=== PATIENT | female | born 1995 | race Caucasian/White ===

== ENCOUNTER 2020-05-07 07:54 | Emergency (ER) | payer OTHER ==
[2020-05-07] MEDS ORDERED: ONDANSETRON 4 MG/2 ML VIAL IVP STA (08:04)
[2020-05-07] MEDS ORDERED: SODIUM CHLORIDE 0.9% 1,000 ML IV STA ×2 (08:04)
[2020-05-07 08:07] VITALS: RESP 18
[2020-05-07 08:32] LABS: Basophils % (A) 0 %; Eosinophils # (A) 0.2 k/uL (0-0.7); Eosinophils % (A) 2 %; Lymphocytes # (A) 0.8 k/uL (1.0-4.8); Lymphocytes % (A) 10 %; MCH 31.4 pg (25.0-35.0); MCHC 34.2 g/dL (31.0-37.0); Mean Platelet Volume 8.4; Monocytes # (A) 0.4 k/uL (0-1.0); Monocytes % (A) 5 %; Neutrophils # (A) 6.7 k/uL (1.3-7.7); Neutrophils % (A) 81 %; Platelet Count 184 k/uL (150-450); RBC 4.13 m/uL (3.80-5.40); RDW 12.2 % (11.5-15.5); WBC 8.3 k/uL (3.8-10.6)
[2020-05-07 08:34] LABS: Appearance,Urine Clear (Clear); Bilirubin,Urine Negative (Negative); Blood,Urine Trace (Negative); Color,Urine Yellow; Glucose,Urine (UA) Negative (Negative); Ketones,Urine 4+ (Negative); Leukocyte Esterase,Urine Negative (Negative); Mucus,Urine Rare /hpf; Nitrite,Urine Negative (Negative); PH, Urine 5.5 (5.0-8.0); Protein,Urine Trace (Negative); RBC,Urine <1 /hpf (0-5); Specific Gravity,Urine 1.025 (1.001-1.035); Squamous Epithelial Cell,Urine 1 /hpf (0-4); Urobilinogen,Urine <2.0 mg/dL (<2.0); WBC,Urine 1 /hpf (0-5)
[2020-05-07 08:47] LABS: ALT 14 U/L (4-34); African American GFR (CKD) >90 (>60 ml/min/1.73 sqM); Albumin 4.6 g/dL (3.5-5.0); Amylase 54 U/L (30-110); Anion Gap 12 mmol/L; Blood Urea Nitrogen 27 mg/dL (7-17); Calcium 8.8 mg/dL (8.4-10.2); Carbon Dioxide 19 mmol/L (22-30); Chloride 106 mmol/L (98-107); Glucose 90 mg/dL (74-99); Lipase 58 U/L (23-300); Non-African American GFR(CKD) >90 (>60 ml/min/1.73 sqM); Sodium 137 mmol/L (137-145); Total Bilirubin 0.9 mg/dL (0.2-1.3); Total Protein 7.8 g/dL (6.3-8.2)
[2020-05-07 08:51] LABS: AST 29 U/L (14-36); Alkaline Phosphatase 41 U/L (38-126)
--- NOTE | 2020-05-07 08:51 | ED ---
Nausea/Vomiting/Diarrhea HPI - General Chief complaint: Nausea/Vomiting/Diarrhea Stated complaint: nausea Time Seen by Provider: 05/07/20 07:57 Source: patient, EMS Mode of arrival: EMS Limitations: no limitations - History of Present Illness Initial comments: 25yo female presenting for cc of nausea, vomiting, possible reaction to influenza vaccine. pt states that a few days ago she was given the influenza vaccine. she states that she has "felt like shit since". she states that she had had chills, body aches and nausesa, she states she had an episode of vomiting today and soem mild abdominal pain. patient denies bloody or black stools, denies blood in vomit, cough or recording a fever at home. patient denies , urinary symptoms. pt has no additional complaints. pt states she thinks it could all be related to anxiety - Related Data Previous Rx's Medication Instructions Recorded Ondansetron Odt [Zofran Odt] 4 mg PO Q8HR PRN 7 Days #21 tab 05/07/20 Allergies Allergy/AdvReac Type Severity Reaction Status Date / Time bee venom protein (honey bee) Allergy Severe Anaphylaxis Verified 05/07/20 08:53 chocolate flavor Allergy Severe Rash/Hives Verified 05/07/20 08:53 Beef Containing Products AdvReac Mild Unknown Verified 05/07/20 08:53 [Beef] Childhood Review of Systems ROS Statement: Those systems with pertinent positive or pertinent negative responses have been documented in the HPI. ROS Other: All systems not noted in ROS Statement are negative. Past Medical History Past Medical History: No Reported History History of Any Multi-Drug Resistant Organisms: None Reported Past Surgical History: No Surgical Hx Reported Past Psychological History: Anxiety Smoking Status: Current some day smoker Past Alcohol Use History: None Reported Past Drug Use History: Marijuana General Exam - General Exam Comments Initial Comments: General: The patient is awake and alert, in no distress, Eye: Pupils are equal, round and reactive to light, extra-ocular movements are intact. No nystagmus. There is normal conjunctiva bilaterally. No signs of icterus. Ears, nose, mouth and throat: There are moist mucous membranes and no oral lesions. Neck: The neck is supple, there is no tenderness or JVD. Cardiovascular: There is a regular rate and rhythm. No murmur, rub or gallop is appreciated. Respiratory: Lungs are clear to auscultation, respirations are non-labored, breath sounds are equal. No wheezes, stridor, rales, or rhonchi. Gastrointestinal: Soft, non-distended, non-tender abdomen without masses or organomegaly noted. There is no rebound or guarding present Musculoskeletal: Normal ROM, no tenderness. Strength 5/5. Sensation intact. Radial pulses equal bilaterally 2+. Neurological: A&O x 3. CN II-XII intact grossly, There are no obvious motor or sensory deficits. Coordination appears grossly intact. Speech is normal. Skin: Skin is warm and dry and no rashes or lesions are noted. Psychiatric: Cooperative, appropriate mood & affect, normal judgment. Limitations: no limitations Course Vital Signs 05/07/20 05/07/20 05/07/20 08:01 09:07 09:20 Temperature 97.5 F L 97.5 F L Pulse Rate 74 75 75 Respiratory 18 18 18 Rate Blood Pressure 120/82 116/77 116/77 O2 Sat by Pulse 99 100 100 Oximetry Medical Decision Making - Medical Decision Making Labs stable. UA ketones, pt states decreased oral intake. glucose WNL. Anion gap 12. patietn hydrated. improvement of symptoms with zofran. abdominal exam unremarkable. pt states this happens with the influenza vaccine. pt will be discharged with zofran and pcp f/u. patient agreeable to this care plan and discharge. - Lab Data Result diagrams: 05/07/20 08:24 05/07/20 08:24 Lab Results 05/07/20 05/07/20 05/07/20 Range/Units 08:24 08:24 08:24 WBC 8.3 (3.8-10.6) k/uL RBC 4.13 (3.80-5.40) m/uL Hgb 13.0 (11.4-16.0) gm/dL Hct 38.0 (34.0-46.0) % MCV 92.0 (80.0-100.0) fL MCH 31.4 (25.0-35.0) pg MCHC 34.2 (31.0-37.0) g/dL RDW 12.2 (11.5-15.5) % Plt Count 184 (150-450) k/uL MPV 8.4 Neutrophils % 81 % Lymphocytes % 10 % Monocytes % 5 % Eosinophils % 2 % Basophils % 0 % Neutrophils # 6.7 (1.3-7.7) k/uL Lymphocytes # 0.8 L (1.0-4.8) k/uL Monocytes # 0.4 (0-1.0) k/uL Eosinophils # 0.2 (0-0.7) k/uL Basophils # 0.0 (0-0.2) k/uL Sodium (137-145) mmol/L Potassium (3.5-5.1) mmol/L Chloride (98-107) mmol/L Carbon Dioxide (22-30) mmol/L Anion Gap mmol/L BUN (7-17) mg/dL Creatinine (0.52-1.04) mg/dL Est GFR (CKD-EPI)AfAm (>60 ml/min/1.73 sqM) Est GFR (CKD-EPI)NonAf (>60 ml/min/1.73 sqM) Glucose (74-99) mg/dL Calcium (8.4-10.2) mg/dL Total Bilirubin (0.2-1.3) mg/dL AST (14-36) U/L ALT (4-34) U/L Alkaline Phosphatase (38-126) U/L Total Protein (6.3-8.2) g/dL Albumin (3.5-5.0) g/dL Amylase (30-110) U/L Lipase (23-300) U/L Urine Color Yellow Urine Appearance Clear (Clear) Urine pH 5.5 (5.0-8.0) Ur Specific [place] 1.025 (1.001-1.035) Urine Protein Trace H (Negative) Urine Glucose (UA) Negative (Negative) Urine Ketones 4+ H (Negative) Urine Blood Trace H (Negative) Urine Nitrite Negative (Negative) Urine Bilirubin Negative (Negative) Urine Urobilinogen <2.0 (<2.0) mg/dL Ur Leukocyte Esterase Negative (Negative) Urine RBC <1 (0-5) /hpf Urine WBC 1 (0-5) /hpf Ur Squamous Epith Cells 1 (0-4) /hpf Urine Mucus Rare H (None) /hpf Urine HCG, Qual Not Detected (Not Detectd) 05/07/20 Range/Units 08:24 WBC (3.8-10.6) k/uL RBC (3.80-5.40) m/uL Hgb (11.4-16.0) gm/dL Hct (34.0-46.0) % MCV (80.0-100.0) fL MCH (25.0-35.0) pg MCHC (31.0-37.0) g/dL RDW (11.5-15.5) % Plt Count (150-450) k/uL MPV Neutrophils % % Lymphocytes % % Monocytes % % Eosinophils % % Basophils % % Neutrophils # (1.3-7.7) k/uL Lymphocytes # (1.0-4.8) k/uL Monocytes # (0-1.0) k/uL Eosinophils # (0-0.7) k/uL Basophils # (0-0.2) k/uL Sodium 137 (137-145) mmol/L Potassium 4.0 (3.5-5.1) mmol/L Chloride 106 (98-107) mmol/L Carbon Dioxide 19 L (22-30) mmol/L Anion Gap 12 mmol/L BUN 27 H (7-17) mg/dL Creatinine 0.71 (0.52-1.04) mg/dL Est GFR (CKD-EPI)AfAm >90 (>60 ml/min/1.73 sqM) Est GFR (CKD-EPI)NonAf >90 (>60 ml/min/1.73 sqM) Glucose 90 (74-99) mg/dL Calcium 8.8 (8.4-10.2) mg/dL Total Bilirubin 0.9 (0.2-1.3) mg/dL AST 29 (14-36) U/L ALT 14 (4-34) U/L Alkaline Phosphatase 41 (38-126) U/L Total Protein 7.8 (6.3-8.2) g/dL Albumin 4.6 (3.5-5.0) g/dL Amylase 54 (30-110) U/L Lipase 58 (23-300) U/L Urine Color Urine Appearance (Clear) Urine pH (5.0-8.0) Ur Specific [place] (1.001-1.035) Urine Protein (Negative) Urine Glucose (UA) (Negative) Urine Ketones (Negative) Urine Blood (Negative) Urine Nitrite (Negative) Urine Bilirubin (Negative) Urine Urobilinogen (<2.0) mg/dL Ur Leukocyte Esterase (Negative) Urine RBC (0-5) /hpf Urine WBC (0-5) /hpf Ur Squamous Epith Cells (0-4) /hpf Urine Mucus (None) /hpf Urine HCG, Qual (Not Detectd) Disposition Clinical Impression: Nausea & vomiting, Urine ketones Disposition: HOME SELF-CARE Condition: Good Instructions (If sedation given, give patient instructions): Acute Nausea and Vomiting (ED) Additional Instructions: Please use medication as discussed. Please follow-up with family doctor in the next 2 days. Please return to emergency room if the symptoms increase or worsen or for any other concerns. Prescriptions: Ondansetron Odt [Zofran Odt] 4 mg PO Q8HR PRN 7 Days #21 tab PRN Reason: Nausea Is patient prescribed a controlled substance at d/c from ED?: No Referrals: None,Stated [Primary Care Provider] - 1-2 days [facility] [NON-STAFF] - 1-2 days Time of Disposition: 08:54
[2020-05-07] MEDS ORDERED: ALPRAZolam 0.5 MG TAB PO STA (08:54)
[2020-05-07 09:21] VITALS: BP 116/77; PULSE 75; TEMP 97.5
== END 2020-05-07 09:25 | disposition home or self-care (01) ==
LOC: EC 07:54
DX: R11.2 Nausea with vomiting, unspecified (principal); R10.9 Unspecified abdominal pain; R82.4 Acetonuria; F17.200 Nicotine dependence, unspecified, uncomplicated; Z91.030 Bee allergy status; Z91.018 Allergy to other foods
CPT/HCPCS: 36415; 80053; 81001; 81025; 82150; 83690; 85025; 96360; 99283

== ENCOUNTER 2021-04-05 14:02 | Emergency (ER) | payer OTHER ==
[2021-04-05 14:40] VITALS: RESP 18
--- NOTE | 2021-04-05 15:42 | XR ---
EXAMINATION TYPE: XR chest 2V DATE OF EXAM: 04/05/2021 COMPARISON: NONE HISTORY: Cough and congestion. TECHNIQUE: Frontal and lateral views of the chest are obtained. FINDINGS: There is no focal air space opacity, pleural effusion, or pneumothorax seen. The cardiac silhouette size is within normal limits. The osseous structures are intact. IMPRESSION: No acute pulmonary process.
[2021-04-05 15:44] VITALS: BP 117/71; PULSE 89; TEMP 97.6
--- NOTE | 2021-04-05 16:01 | ED ---
URI HPI - General Chief Complaint: Upper Respiratory Infection Stated Complaint: SOB,Cough,Fever-wants covid screening Time Seen by Provider: 04/05/21 14:42 Source: patient, RN notes reviewed Mode of arrival: ambulatory Limitations: no limitations - History of Present Illness Initial Comments: Patient is a 26-year-old female that presents to the emergency department complaining of upper respiratory tract symptoms also she has a history of chronic bronchitis. She notes he came emergently get tested for Covid. She was otherwise well-appearing. She notes she is feels like garbage she usually gets this around this time year. She denied any chest pain headache nausea vomiting diarrhea constipation teaching chills. - Related Data Previous Rx's Medication Instructions Recorded Ondansetron Odt [Zofran Odt] 4 mg PO Q8HR PRN 7 Days #21 tab 05/07/20 Allergies Allergy/AdvReac Type Severity Reaction Status Date / Time bee venom protein (honey bee) Allergy Severe Anaphylaxis Verified 05/07/20 08:53 chocolate flavor Allergy Severe Rash/Hives Verified 05/07/20 08:53 Beef Containing Products AdvReac Mild Unknown Verified 05/07/20 08:53 [Beef] Childhood Review of Systems ROS Statement: Those systems with pertinent positive or pertinent negative responses have been documented in the HPI. ROS Other: All systems not noted in ROS Statement are negative. Past Medical History Past Medical History: No Reported History History of Any Multi-Drug Resistant Organisms: None Reported Past Surgical History: No Surgical Hx Reported Past Psychological History: Anxiety Smoking Status: Current some day smoker Past Alcohol Use History: None Reported Past Drug Use History: Marijuana General Exam Limitations: no limitations General appearance: alert, in no apparent distress Head exam: Present: atraumatic, normocephalic, normal inspection Eye exam: Present: normal appearance, PERRL, EOMI. Absent: scleral icterus, conjunctival injection, periorbital swelling ENT exam: Present: normal exam, mucous membranes moist Neck exam: Present: normal inspection Respiratory exam: Present: normal lung sounds bilaterally. Absent: respiratory distress, wheezes, rales, rhonchi, stridor Cardiovascular Exam: Present: regular rate, normal rhythm, normal heart sounds. Absent: systolic murmur, diastolic murmur, rubs, gallop, clicks Extremities exam: Present: normal inspection, full ROM, normal capillary refill. Absent: tenderness, pedal edema, joint swelling, calf tenderness Neurological exam: Present: alert, oriented X3 Psychiatric exam: Present: normal affect, normal mood Skin exam: Present: warm, dry, intact, normal color. Absent: rash Course Vital Signs 04/05/21 04/05/21 14:36 15:43 Temperature 97.6 F Pulse Rate 72 89 Respiratory 18 18 Rate Blood Pressure 111/70 117/71 O2 Sat by Pulse 100 99 Oximetry Medical Decision Making - Medical Decision Making 26-year-old female with upper respiratory tract symptoms for the past several days. Covid test, chest x-ray ordered. Covid test negative. Chest x-ray shows no acute pulmonary process. On patient most likely has an upper respiratory tract infection. She is agreeable discharge home and conservative management. Case discussed with Dr. Melendez - Lab Data Lab Results 04/05/21 Range/Units 14:44 Coronavirus (PCR) Not Detected (Not Detectd) - Radiology Data Radiology results: report reviewed, image reviewed Chest x-ray: No acute pulmonary process. Disposition Clinical Impression: Upper respiratory tract infection Disposition: HOME SELF-CARE Condition: Stable Instructions (If sedation given, give patient instructions): Upper Respiratory Infection (ED) Additional Instructions: Please return to the Emergency Department if symptoms worsen or any other concerns. Is patient prescribed a controlled substance at d/c from ED?: No Referrals: None,Stated [Primary Care Provider] - 1-2 days Time of Disposition: 16:01
== END 2021-04-05 16:11 | disposition home or self-care (01) ==
LOC: EC 14:02
DX: J06.9 Acute upper respiratory infection, unspecified (principal); F17.200 Nicotine dependence, unspecified, uncomplicated; F12.90 Cannabis use, unspecified, uncomplicated; Z20.822 Contact with and (suspected) exposure to COVID-19; Z79.899 Other long term (current) drug therapy
CPT/HCPCS: 71046; 87635; 99283

== ENCOUNTER 2021-05-23 13:36 | Emergency (ER) | payer SELFPAY ==
[2021-05-23 13:40] VITALS: BP 118/81; PULSE 98; RESP 20; TEMP 97.5
[2021-05-23] MEDS ORDERED: KETOROLAC 15 MG/ML 1 ML VIAL IM STA (13:52)
--- NOTE | 2021-05-23 13:58 | ED ---
General Adult HPI - General Chief complaint: Back Pain/Injury Stated complaint: Fall Time Seen by Provider: 05/23/21 13:43 Source: patient Mode of arrival: ambulatory Limitations: no limitations - History of Present Illness Initial comments: This 26-year-old female presents to the emergency department with low back pain after sledding, hit a rock. Patient states about one hour ago she was sitting outside when her sled hit her out, causing her lower back to also hit the rock before she fell off the sled, rolling downhill. Patient denies any prior back surgeries or injuries in the past. Patient states she was able to get up and has been able to walk since. She states her pain in her back as 9/10. Patient denies any chest pain, abdominal pain, shortness of breath, change in vision, nausea, vomiting, headache, saddle anesthesia, bowel or bladder retention. - Related Data Previous Rx's Medication Instructions Recorded Ketorolac [Toradol] 10 mg PO TID #15 tab 05/23/21 Allergies Allergy/AdvReac Type Severity Reaction Status Date / Time bee venom protein (honey bee) Allergy Severe Anaphylaxis Verified 05/23/21 14:36 chocolate flavor Allergy Severe Rash/Hives Verified 05/23/21 14:36 kiwi Allergy Rash/Hives Verified 05/23/21 14:36 Review of Systems ROS Statement: Those systems with pertinent positive or pertinent negative responses have been documented in the HPI. ROS Other: All systems not noted in ROS Statement are negative. Past Medical History Past Medical History: Asthma History of Any Multi-Drug Resistant Organisms: None Reported Past Surgical History: No Surgical Hx Reported Past Psychological History: Anxiety Smoking Status: Current every day smoker Past Alcohol Use History: None Reported Past Drug Use History: Marijuana General Exam Limitations: no limitations General appearance: alert, in no apparent distress Head exam: Present: atraumatic, normocephalic Eye exam: Present: PERRL, EOMI Pupils: Present: normal accommodation ENT exam: Present: mucous membranes moist Neck exam: Present: normal inspection, full ROM. Absent: meningismus Respiratory exam: Present: normal lung sounds bilaterally. Absent: respiratory distress, wheezes, rales, rhonchi, stridor Cardiovascular Exam: Present: regular rate, normal rhythm, normal heart sounds. Absent: systolic murmur, diastolic murmur, rubs, gallop, clicks GI/Abdominal exam: Present: soft, normal bowel sounds. Absent: distended, tenderness, guarding, rebound, rigid Extremities exam: Absent: full ROM, tenderness, calf tenderness Back exam: Present: full ROM, paraspinal tenderness, vertebral tenderness (Lumbar and sacral spine tender to palpation. No visual deformity. No erythema, warmth, swelling to the lower spine or back.). Absent: CVA tenderness (R), CVA tenderness (L) Neurological exam: Present: alert, oriented X3, CN II-XII intact, normal gait Psychiatric exam: Present: normal affect, normal mood Skin exam: Present: warm, dry, intact, normal color. Absent: rash Course Vital Signs 05/23/21 13:37 Temperature 97.5 F L Pulse Rate 98 Respiratory 20 Rate Blood Pressure 118/81 O2 Sat by Pulse 100 Oximetry Medical Decision Making - Medical Decision Making This 26-year-old female presents to the emergency department with lower back pain after sliding into a rock on the sled, hitting her back earlier today. Lumbosacral spine x-ray impression: No acute fracture or subluxation. Suspect some mild degenerative disc disease may be present. Consider lumbar MRI is indicated. After receiving Toradol injection, patient states some of her pain has been alleviated. Patient sent home with Toradol and told to take Tylenol as directed. Patient to follow-up with primary care provider in next 24-48 hours. Patient sent home in stable condition. Patient verbally agreed to plan. Case discussed with my attending, Dr. Palacios. Disposition Clinical Impression: Low back pain Disposition: HOME SELF-CARE Condition: Stable Instructions (If sedation given, give patient instructions): Acute Low Back Pain (ED) Additional Instructions: Please return to the emergency department with any concerning, new, or worsening symptoms. Please follow up with primary care provider next 24-48 hours. Prescriptions: Ketorolac [Toradol] 10 mg PO TID #15 tab Is patient prescribed a controlled substance at d/c from ED?: No Referrals: Viky Menendez DO [Primary Care Provider] - 1-2 days Time of Disposition: 15:14
--- NOTE | 2021-05-23 14:43 | XR ---
Lumbosacral spine HISTORY: Trauma and pain 5 views of the lumbosacral spine There is a slight spinal curvature. Lumbar vertebral bodies show preserved height, bone mineralizatio n. There is overlying artifact present. No evident spondylolysis. Loss of disc height present L5-S1. IMPRESSION: No acute fracture or subluxation. Suspect some mild degenerative disc disease may be pres ent. Consider lumbar MRI as indicated.
== END 2021-05-23 15:22 | disposition home or self-care (01) ==
LOC: EC 13:36
DX: M54.59 Other low back pain (principal); J45.909 Unspecified asthma, uncomplicated; F41.9 Anxiety disorder, unspecified; F17.200 Nicotine dependence, unspecified, uncomplicated; F12.90 Cannabis use, unspecified, uncomplicated
CPT/HCPCS: 99283; 96372; 72110; J1885

== ENCOUNTER → 2021-07-05 | Day surgery (SDC) | payer BC ==
[2021-07-03 15:33] VITALS: BMI 18.6
[~2021-07-05] MED LIST: LACTATED RINGERS 1,000 ML IV SCH; LIDOCAINE 1% (10MG/ML) FOR IV START INTRADERMA PRN; LIDOCAINE 1% INJ 10MG/ML (20 ML MDV) ONE; ONDANSETRON 4 MG/2 ML VIAL IVP ONE; ONDANSETRON 4 MG/2 ML VIAL IVP PRN; PROPOFOL 10 MG/ML 20 ML VIAL IV ONE
[2021-07-05 08:14] VITALS: TEMP 98.8
--- NOTE | 2021-07-05 08:40 | P.GSHP ---
History of Present Illness H&P Date: 07/05/21 Chief Complaint: Epigastric pain This a 18-year-old female second plates epigastric pain. Patient resents today for EGD. Past Medical History Past Medical History: Asthma, Sleep Apnea/CPAP/BIPAP Additional Past Medical History / Comment(s): NAUSEA AND VOMITING, ABDOMINAL PAIN History of Any Multi-Drug Resistant Organisms: None Reported Past Surgical History: No Surgical Hx Reported Past Anesthesia/Blood Transfusion Reactions: No Reported Reaction Additional Past Anesthesia/Blood Transfusion Reaction / Comment(s): FIRST ANESTHETIC Past Psychological History: Anxiety Smoking Status: Current every day smoker Past Alcohol Use History: None Reported Additional Past Alcohol Use History / Comment(s): STARTED SMOKING AT AGE 16 SMOKES 1/2PPD Past Drug Use History: Marijuana Additional Drug Use History / Comment(s): DAILY USE- TO HOLD 24 HOURS PRIOR TO PROCEDURE. - Past Family History Mother Family Medical History: No Reported History Medications and Allergies Home Medications Medication Instructions Recorded Confirmed Type Omeprazole 20 mg PO DAILY 07/03/21 07/03/21 History ondansetron HCL [Zofran] 8 mg PO Q12HR 07/03/21 07/03/21 History Allergies Allergy/AdvReac Type Severity Reaction Status Date / Time bee venom protein (honey bee) Allergy Severe Anaphylaxis Verified 07/03/21 15:01 chocolate flavor Allergy Severe Rash/Hives Verified 07/03/21 15:01 kiwi Allergy Rash/Hives Verified 07/03/21 15:01 Surgical - Exam Vital Signs Temp Pulse Resp BP Pulse Ox 98.8 F 72 20 116/76 97 07/05/21 08:04 07/05/21 08:04 07/05/21 08:04 07/05/21 08:04 07/05/21 08:04 - General well developed, well nourished, no distress - Eyes PERRL - ENT normal pinna - Neck no masses - Respiratory normal expansion - Cardiovascular Rhythm: regular - Abdomen Abdomen: soft, non tender Assessment and Plan Assessment: Epigastric pain. Perform EGD.
--- NOTE | 2021-07-05 08:48 | P.OP ---
Date of Procedure: 07/05/21 Preoperative Diagnosis: Epigastric pain Postoperative Diagnosis: Mild antral gastritis Procedure(s) Performed: EGD Anesthesia: MAC Surgeon: Catracho Kenyon Pathology: other (Antrum) Condition: stable Disposition: PACU Description of Procedure: Patient's placed on the endoscopy table in the lateral position. She received IV sedation. The gastroscope placed oropharynx passed in the esophagus into the stomach. Scope some placed through the pylorus. The first and second portion of the duodenum appeared normal. Scope was then brought back the antrum and this appeared mildly inflamed. A biopsies performed. Scope was then retroflexed and the remainder of the stomach appeared normal. The GE junction was at 40 cm. The distal esophagus appeared normal. The proximal esophagus appeared normal. The scope withdrawn for patient. Due to the patient's symptoms and epigastric pain. A HIDA scan was scheduled.
[2021-07-05 10:28] VITALS: BP 103/67; PULSE 77; RESP 18
--- NOTE | 2021-07-05 12:33 | NM ---
EXAMINATION TYPE: NM hepatobiliary w CCK DATE OF EXAM: 07/05/2021 COMPARISON: NONE HISTORY: Epigastric pain TECHNIQUE: After the intravenous administration of 4.97 mCi Tc 99m Mebrofenin hepatobiliary scintigra phy is performed. Immediate images post injection. FINDINGS: There is satisfactory initial accumulation of tracer by the liver. The gallbladder is visualized wit hin 10 minutes. The small bowel activity is noted within 40 minutes. At one hour CCK was administer ed, patient was injected with 0.94 mcg of Kinevac, and gallbladder ejection fraction is calculated at 86%. IMPRESSION: Hypercontractile ejection fraction
== END | disposition home or self-care (01) ==
LOC: ORWHC2ENDO 07:33
PROVIDERS: ATTEND Surgery
DX: K29.60 Other gastritis without bleeding (principal); J45.909 Unspecified asthma, uncomplicated; G47.33 Obstructive sleep apnea (adult) (pediatric)
CPT/HCPCS: 43239; 81025; 88305; 78227; A9537; J2405; J2805; J2001; J2704

== ENCOUNTER 2021-07-11 17:58 | Inpatient (IN) | payer BC ==
[2021-07-11] MEDS ORDERED: SODIUM CHLORIDE 0.9% 1,000 ML IV STA (20:00)
[2021-07-11] MEDS ORDERED: KETOROLAC 15 MG/ML 1 ML VIAL IVP STA (20:06)
[2021-07-11] MEDS ORDERED: HYDROmorphone 1 MG/ML 1 ML SYRINGE IVP STA (20:06)
[2021-07-11] MEDS ORDERED: ONDANSETRON 4 MG/2 ML VIAL IVP STA (20:06)
[2021-07-11 20:16] LABS: Basophils % (A) 0 %; Eosinophils # (A) 0.1 k/uL (0-0.7); Eosinophils % (A) 1 %; HGB 14.1 gm/dL (11.4-16.0); Lymphocytes # (A) 2.9 k/uL (1.0-4.8); Lymphocytes % (A) 21 %; MCH 31.7 pg (25.0-35.0); MCHC 32.9 g/dL (31.0-37.0); MCV 96.4 fL (80.0-100.0); Mean Platelet Volume 7.9; Monocytes # (A) 0.6 k/uL (0-1.0); Monocytes % (A) 4 %; Neutrophils # (A) 9.6 k/uL (1.3-7.7); Neutrophils % (A) 71 %; Platelet Count 297 k/uL (150-450); RBC 4.46 m/uL (3.80-5.40); RDW 12.8 % (11.5-15.5); WBC 13.6 k/uL (3.8-10.6)
[2021-07-11 20:28] LABS: ALT 12 U/L (4-34); AST 20 U/L (14-36); African American GFR (CKD) >90 (>60 ml/min/1.73 sqM); Albumin 4.9 g/dL (3.5-5.0); Alkaline Phosphatase 52 U/L (38-126); Amylase 85 U/L (30-110); Anion Gap 9 mmol/L; Blood Urea Nitrogen 15 mg/dL (7-17); Calcium 9.4 mg/dL (8.4-10.2); Carbon Dioxide 26 mmol/L (22-30); Chloride 104 mmol/L (98-107); Glucose 95 mg/dL (74-99); Lipase 39 U/L (23-300); Non-African American GFR(CKD) >90 (>60 ml/min/1.73 sqM); Potassium 3.5 mmol/L (3.5-5.1); Sodium 139 mmol/L (137-145); Total Bilirubin 0.6 mg/dL (0.2-1.3); Total Protein 8.3 g/dL (6.3-8.2)
--- NOTE | 2021-07-11 20:42 | XR ---
EXAMINATION TYPE: XR KUB DATE OF EXAM: 07/11/2021 8:33 PM INDICATION: Patient age:Female; 26 years old; Reason for study: upper abd pain ; COMPARISON: None. TECHNIQUE: One radiographic view of the abdomen was obtained. FINDINGS: The bowel gas pattern is nonspecific without dilated loops of small or large bowel. The os seous structures are intact. No abnormal calcifications are present. Fecal material and gas are demo nstrated throughout the colon and rectum. IMPRESSION: Nonspecific bowel gas pattern without radiographic evidence for acute process.
--- NOTE | 2021-07-11 20:47 | ED ---
Abdominal Pain HPI - General Chief Complaint: Abdominal Pain Stated Complaint: Abdominal pain Time Seen by Provider: 07/11/21 20:00 Source: patient, RN notes reviewed Mode of arrival: ambulatory Limitations: no limitations - History of Present Illness Initial Comments: This is a pleasant 26-year-old female comes the ER complaining of upper abd ominal pain. She states the pain is sharp, radiates across the upper abdomen, exacerbated by breathing and eating. Patient has seen Dr. Kenyon and apparently has had testing and is scheduled to have her gallbladder removed on July 25. However the pain became much worse today after eating. Patient presented after calling the surgeon, she was instructed to come here and possibly be admitted for cholecystectomy. No headache, no fever or chills, no changes in vision or hearing, no sore throat or difficulty with speech, no neck pain, no chest pain or shortness of breath, no changes in urination or bowel movements, no numbness or tingling, no extremity pain, no skin rashes or lesions. Patient has had several episodes of nonbilious vomiting. No hematochezia or melena. Denies problems with urination or bowel movements. Last menstrual period is current. Denies chance of . - Related Data Home Medications Medication Instructions Recorded Confirmed Omeprazole 20 mg PO DAILY 07/03/21 07/11/21 ondansetron HCL [Zofran] 8 mg PO Q8H PRN 07/03/21 07/11/21 Allergies Allergy/AdvReac Type Severity Reaction Status Date / Time bee venom protein (honey bee) Allergy Severe Anaphylaxis Verified 07/11/21 20:44 chocolate flavor Allergy Severe Rash/Hives Verified 07/11/21 20:44 kiwi Allergy Rash/Hives Verified 07/11/21 20:44 Review of Systems ROS Statement: Those systems with pertinent positive or pertinent negative responses have been documented in the HPI. ROS Other: All systems not noted in ROS Statement are negative. Past Medical History Past Medical History: Asthma, Sleep Apnea/CPAP/BIPAP Additional Past Medical History / Comment(s): NAUSEA AND VOMITING, ABDOMINAL PAIN History of Any Multi-Drug Resistant Organisms: None Reported Past Surgical History: No Surgical Hx Reported Past Anesthesia/Blood Transfusion Reactions: No Reported Reaction Additional Past Anesthesia/Blood Transfusion Reaction / Comment(s): FIRST ANESTHETIC Past Psychological History: Anxiety Smoking Status: Current every day smoker Past Alcohol Use History: None Reported Past Drug Use History: Marijuana - Past Family History Mother Family Medical History: No Reported History General Exam - General Exam Comments Initial Comments: Patient in moderate to severe distress due to upper abdominal pain. Limitations: no limitations General appearance: alert, in distress Head exam: Present: atraumatic, normocephalic, normal inspection Eye exam: Present: normal appearance, PERRL, EOMI. Absent: scleral icterus, conjunctival injection, periorbital swelling ENT exam: Present: normal exam, mucous membranes moist Neck exam: Present: normal inspection. Absent: tenderness, meningismus, lymphadenopathy Respiratory exam: Present: normal lung sounds bilaterally. Absent: respiratory distress, wheezes, rales, rhonchi, stridor Cardiovascular Exam: Present: regular rate, normal rhythm, normal heart sounds. Absent: systolic murmur, diastolic murmur, rubs, gallop, clicks GI/Abdominal exam: Present: soft, tenderness, guarding, normal bowel sounds. Absent: distended, rebound, rigid Extremities exam: Present: normal inspection, full ROM, normal capillary refill. Absent: tenderness, pedal edema, joint swelling, calf tenderness Back exam: Present: normal inspection Neurological exam: Present: alert, oriented X3, CN II-XII intact Psychiatric exam: Present: normal affect, normal mood Skin exam: Present: warm, dry, intact, normal color. Absent: rash Course Vital Signs 07/11/21 18:02 Temperature 97 F L Pulse Rate 102 H Respiratory 18 Rate Blood Pressure 148/86 O2 Sat by Pulse 100 Oximetry - Reevaluation(s) Reevaluation #1: 07/11/21 22:34 Medical record is reviewed Patient still having some upper abdominal pain. Patient is informed of results and questions answered Patient is hemodynamically stable. Medical Decision Making - Lab Data Result diagrams: 07/11/21 20:05 07/11/21 20:05 Lab Results 07/11/21 07/11/21 Range/Units 20:05 20:05 WBC 13.6 H (3.8-10.6) k/uL RBC 4.46 (3.80-5.40) m/uL Hgb 14.1 (11.4-16.0) gm/dL Hct 43.0 (34.0-46.0) % MCV 96.4 (80.0-100.0) fL MCH 31.7 (25.0-35.0) pg MCHC 32.9 (31.0-37.0) g/dL RDW 12.8 (11.5-15.5) % Plt Count 297 (150-450) k/uL MPV 7.9 Neutrophils % 71 % Lymphocytes % 21 % Monocytes % 4 % Eosinophils % 1 % Basophils % 0 % Neutrophils # 9.6 H (1.3-7.7) k/uL Lymphocytes # 2.9 (1.0-4.8) k/uL Monocytes # 0.6 (0-1.0) k/uL Eosinophils # 0.1 (0-0.7) k/uL Basophils # 0.0 (0-0.2) k/uL Sodium 139 (137-145) mmol/L Potassium 3.5 (3.5-5.1) mmol/L Chloride 104 (98-107) mmol/L Carbon Dioxide 26 (22-30) mmol/L Anion Gap 9 mmol/L BUN 15 (7-17) mg/dL Creatinine 0.70 (0.52-1.04) mg/dL Est GFR (CKD-EPI)AfAm >90 (>60 ml/min/1.73 sqM) Est GFR (CKD-EPI)NonAf >90 (>60 ml/min/1.73 sqM) Glucose 95 (74-99) mg/dL Calcium 9.4 (8.4-10.2) mg/dL Total Bilirubin 0.6 (0.2-1.3) mg/dL AST 20 (14-36) U/L ALT 12 (4-34) U/L Alkaline Phosphatase 52 (38-126) U/L Total Protein 8.3 H (6.3-8.2) g/dL Albumin 4.9 (3.5-5.0) g/dL Amylase 85 (30-110) U/L Lipase 39 (23-300) U/L - Radiology Data Radiology results: report reviewed, image reviewed Disposition Clinical Impression: Acute upper abdominal pain Disposition: ADMITTED IP TO THIS [facility] Condition: Stable Referrals: Viky Menendez DO [Primary Care Provider] - 1-2 days Time of Disposition: 22:36
--- NOTE | 2021-07-11 21:18 | US ---
EXAMINATION TYPE: US gallbladder DATE OF EXAM: 07/11/2021 COMPARISON: Nuc Med HIDA 07/05/21 CLINICAL HISTORY: Upper abdominal pain. Epigastric pain EXAM MEASUREMENTS: Liver Length: 12.8 cm Gallbladder Wall: 0.18 cm CBD: 0.25 cm Right Kidney: 10.2 x 3.2 x 4.9 cm Pancreas: wnl Liver: wnl Gallbladder: wnl Evidence for sonographic Serna's sign: no CBD: wnl Right Kidney: No hydronephrosis or masses seen IMPRESSION: No evidence of acute process.
[2021-07-11] MEDS ORDERED: NALOXONE 0.4 MG/ML 1 ML VIAL IV PRN (22:36)
[2021-07-11] MEDS: SODIUM CHLORIDE 0.9% 1,000 ML IV SCH (22:50)
[2021-07-11 23:59] LABS: Appearance,Urine Clear (Clear); Bilirubin,Urine Negative (Negative); Blood,Urine Negative (Negative); Color,Urine Yellow; Glucose,Urine (UA) Negative (Negative); Ketones,Urine 1+ (Negative); Leukocyte Esterase,Urine Negative (Negative); Nitrite,Urine Negative (Negative); PH, Urine 5.5 (5.0-8.0); Protein,Urine Negative (Negative); Specific Gravity,Urine 1.021 (1.001-1.035); Urobilinogen,Urine <2.0 mg/dL (<2.0)
[2021-07-12 08:37] LABS: Basophils % (A) 0 %; Eosinophils # (A) 0.1 k/uL (0-0.7); Eosinophils % (A) 2 %; HCT 39.4 % (34.0-46.0); HGB 12.7 gm/dL (11.4-16.0); Lymphocytes # (A) 1.3 k/uL (1.0-4.8); Lymphocytes % (A) 19 %; MCH 31.9 pg (25.0-35.0); MCHC 32.2 g/dL (31.0-37.0); MCV 99.1 fL (80.0-100.0); Mean Platelet Volume 8.2; Monocytes # (A) 0.3 k/uL (0-1.0); Monocytes % (A) 5 %; Neutrophils # (A) 4.8 k/uL (1.3-7.7); Neutrophils % (A) 71 %; Platelet Count 214 k/uL (150-450); RBC 3.97 m/uL (3.80-5.40); RDW 12.5 % (11.5-15.5); WBC 6.8 k/uL (3.8-10.6)
[2021-07-12 08:54] LABS: ALT 11 U/L (4-34); AST 19 U/L (14-36); African American GFR (CKD) >90 (>60 ml/min/1.73 sqM); Albumin 3.7 g/dL (3.5-5.0); Alkaline Phosphatase 48 U/L (38-126); Anion Gap 7 mmol/L; Blood Urea Nitrogen 18 mg/dL (7-17); Calcium 8.3 mg/dL (8.4-10.2); Carbon Dioxide 22 mmol/L (22-30); Chloride 110 mmol/L (98-107); Glucose 75 mg/dL (74-99); Lipase 34 U/L (23-300); Non-African American GFR(CKD) >90 (>60 ml/min/1.73 sqM); Potassium 3.8 mmol/L (3.5-5.1); Sodium 139 mmol/L (137-145); Total Protein 6.6 g/dL (6.3-8.2)
[2021-07-12] MEDS: HYDROmorphone 1 MG/ML 1 ML SYRINGE IVP PRN (09:18)
[2021-07-12] MEDS: ONDANSETRON 4 MG/2 ML VIAL IVP PRN ×2 (09:18→22:56)
[2021-07-12] MEDS: SODIUM CHLORIDE 0.9% 1,000 ML IV SCH ×3 (09:23→22:45)
--- NOTE | 2021-07-12 09:48 | P.GSHP ---
History of Present Illness H&P Date: 07/12/21 CHIEF COMPLAINT: Abdominal pain HISTORY OF PRESENT ILLNESS: This is a 26-year-old female who presented to the emergency department yesterday evening with complaints of left upper quadrant pain. Patient had been recently seen by outpatient and underwent EGD on 07/05/2021 for complaints of epigastric pain which showed mild gastritis. Patient also underwent HIDA scan on 07/05/2021 that showed a gallbladder ejection fraction at 86%, hyper contractile ejection fraction. Yesterday she underwent a gallbladder ultrasound in the emergency room with the impression sta ting no evidence of acute process. She states the pain began yesterday morning around 6 AM and progressively Worse. She had some nausea but no vomiting. Pain was more epigastric she said but now has moved to the left upper quadrant. Denies any fevers or chills. Patient is afebrile. WBC elevated at 13.6 on admission. He denies any previous surgical history. PAST MEDICAL HISTORY: Asthma PAST SURGICAL HISTORY: None MEDICATIONS: See list. ALLERGIES: See list. SOCIAL HISTORY: Current smoker, marijuana. REVIEW OF SYSTEMS: CONSTITUTIONAL: Denies fever or chills. HEENT: Denies blurred vision, vision changes, or eye pain. Denies hemoptysis CARDIOVASCULAR: Denies chest pain or pressure. RESPIRATORY: No shortness of breath. GASTROINTESTINAL: See HPI for pertinent findings HEMATOLOGIC: Denies bleeding disorders. GENITOURINARY: Denies any blood in urine or increased urinary frequency. SKIN: Denies pruitis. Denies rash. PHYSICAL EXAM: VITAL SIGNS: Reviewed GENERAL: Well-developed in no acute distress. HEENT: No sclera icterus. Extraocular movements grossly intact. Moist buccal mucosa. Head is atraumatic, normocephalic. No nasal drainage. ABDOMEN: Soft. Thin. Nondistended. Tenderness with palpation left upper quadrant. NEUROLOGIC: Alert and oriented. Cranial nerves II through XII grossly intact. LABORATORY DATA: WBC 6.8 hemoglobin 12.7 hematocrit 39 platelet count 214,000 Sodium 139 potassium 3.8 BUN 18 creatinine 0.7 glucose 75 Total bilirubin 1.0 AST 19 T 11 alkaline phosphatase 48 lipase 34 IMAGING: HIDA scan on 07/05/2021 that showed a gallbladder ejection fraction at 86%, hyper contractile ejection fraction. Gallbladder ultrasound in the emergency room with the impression stating no evidence of acute process. ASSESSMENT: 1. Abdominal pain 2. Gallbladder with hypercontractile ejection fraction seen on HIDA scan PLAN: 1. Patient may have clear liquid diet, nothing by mouth after midnight 2. Continue with pain medication as needed 3. Protonix 40 mg daily for GI prophylaxis 4. Zofran for nausea 5. Zosyn Q8 hours 6. Patient scheduled for laparoscopic cholecystectomy with possible open tomorrow The impression and plan of care has been dictated as directed. Dr. Kenyon I performed a history and examination of this patient, discussed the same with the dictator. I agree with the dictator's note ,documented as a scribe. Any additional findings or plans will be noted. Past Medical History Past Medical History: Asthma, Sleep Apnea/CPAP/BIPAP Additional Past Medical History / Comment(s): NAUSEA AND VOMITING, ABDOMINAL PAIN History of Any Multi-Drug Resistant Organisms: None Reported Past Surgical History: No Surgical Hx Reported Past Anesthesia/Blood Transfusion Reactions: No Reported Reaction Additional Past Anesthesia/Blood Transfusion Reaction / Comment(s): FIRST ANESTHETIC Past Psychological History: Anxiety Smoking Status: Current every day smoker Past Alcohol Use History: None Reported Past Drug Use History: Marijuana - Past Family History Mother Family Medical History: No Reported History Medications and Allergies Home Medications Medication Instructions Recorded Confirmed Type Omeprazole 20 mg PO DAILY 07/03/21 07/11/21 History ondansetron HCL [Zofran] 8 mg PO Q8H PRN 07/03/21 07/11/21 History Allergies Allergy/AdvReac Type Severity Reaction Status Date / Time bee venom protein (honey bee) Allergy Severe Anaphylaxis Verified 07/11/21 20:44 chocolate flavor Allergy Severe Rash/Hives Verified 07/11/21 20:44 kiwi Allergy Rash/Hives Verified 07/11/21 20:44 Surgical - Exam Vital Signs Temp Pulse Resp BP Pulse Ox 97 F L 102 H 18 148/86 100 07/11/21 18:02 07/11/21 18:02 07/11/21 18:02 07/11/21 18:02 07/11/21 18:02 Results - Labs 07/12/21 08:14 07/12/21 08:14 Abnormal Lab Results - Last 24 Hours (Table) 07/11/21 07/11/21 07/11/21 Range/Units 20:05 20:05 22:59 WBC 13.6 H (3.8-10.6) k/uL Neutrophils # 9.6 H (1.3-7.7) k/uL Total Protein 8.3 H (6.3-8.2) g/dL Urine Ketones 1+ H (Negative) Diabetes panel 07/11/21 Range/Units 20:05 Sodium 139 (137-145) mmol/L Potassium 3.5 (3.5-5.1) mmol/L Chloride 104 (98-107) mmol/L Carbon Dioxide 26 (22-30) mmol/L BUN 15 (7-17) mg/dL Creatinine 0.70 (0.52-1.04) mg/dL Glucose 95 (74-99) mg/dL Calcium 9.4 (8.4-10.2) mg/dL AST 20 (14-36) U/L ALT 12 (4-34) U/L Alkaline Phosphatase 52 (38-126) U/L Total Protein 8.3 H (6.3-8.2) g/dL Albumin 4.9 (3.5-5.0) g/dL Calcium panel 07/11/21 Range/Units 20:05 Calcium 9.4 (8.4-10.2) mg/dL Albumin 4.9 (3.5-5.0) g/dL Pituitary panel 07/11/21 Range/Units 20:05 Sodium 139 (137-145) mmol/L Potassium 3.5 (3.5-5.1) mmol/L Chloride 104 (98-107) mmol/L Carbon Dioxide 26 (22-30) mmol/L BUN 15 (7-17) mg/dL Creatinine 0.70 (0.52-1.04) mg/dL Glucose 95 (74-99) mg/dL Calcium 9.4 (8.4-10.2) mg/dL Adrenal panel 07/11/21 Range/Units 20:05 Sodium 139 (137-145) mmol/L Potassium 3.5 (3.5-5.1) mmol/L Chloride 104 (98-107) mmol/L Carbon Dioxide 26 (22-30) mmol/L BUN 15 (7-17) mg/dL Creatinine 0.70 (0.52-1.04) mg/dL Glucose 95 (74-99) mg/dL Calcium 9.4 (8.4-10.2) mg/dL Total Bilirubin 0.6 (0.2-1.3) mg/dL AST 20 (14-36) U/L ALT 12 (4-34) U/L Alkaline Phosphatase 52 (38-126) U/L Total Protein 8.3 H (6.3-8.2) g/dL Albumin 4.9 (3.5-5.0) g/dL
[2021-07-12] MEDS: PIPERACILLIN-TAZOBACTAM 3.375 GM in SODIUM CHLORIDE 0.9% 100 ML IVPB SCH ×2 (10:38→17:26)
[2021-07-13] MEDS: PIPERACILLIN-TAZOBACTAM 3.375 GM in SODIUM CHLORIDE 0.9% 100 ML IVPB SCH ×3 (01:12→17:25)
[2021-07-13] MEDS: METOCLOPRAMIDE 5 MG/ML 2 ML VIAL IVP PRN ×3 (05:21→21:58)
[2021-07-13] MEDS: SODIUM CHLORIDE 0.9% 1,000 ML IV SCH ×3 (05:33→20:35)
[2021-07-13 07:58] LABS: African American GFR (CKD) >90 (>60 ml/min/1.73 sqM); Anion Gap 3 mmol/L; Blood Urea Nitrogen 9 mg/dL (7-17); Calcium 8.1 mg/dL (8.4-10.2); Carbon Dioxide 23 mmol/L (22-30); Chloride 110 mmol/L (98-107); Glucose 85 mg/dL (74-99); Non-African American GFR(CKD) >90 (>60 ml/min/1.73 sqM); Potassium 3.8 mmol/L (3.5-5.1); Sodium 136 mmol/L (137-145)
[2021-07-13] MEDS: HYDROmorphone 1 MG/ML 1 ML SYRINGE IVP PRN ×3 (09:42→20:34)
[2021-07-13] MEDS: PANTOPRAZOLE 40 MG TABLET PO SCH (09:44)
[2021-07-13] MEDS ORDERED: DEXAMETHASONE SOD PHOSPHATE 4 MG/ML 1 ML VIAL IV ONE (11:25)
[2021-07-13] MEDS ORDERED: HYDROmorphone 0.5 MG/0.5 ML SYRINGE IVP PRN (11:25)
[2021-07-13] MEDS ORDERED: ONDANSETRON 4 MG/2 ML VIAL IVP ONE ×2 (11:25→11:59)
[2021-07-13] MEDS ORDERED: LIDOCAINE 1% (10MG/ML) FOR IV START INTRADERMA PRN (11:25)
[2021-07-13] MEDS ORDERED: MIDAZOLAM 2 MG/2 ML VIAL IV PRN (11:25)
[2021-07-13] MEDS ORDERED: IV FLUID CONTINUATION 1,000 ML IV ONE ×2 (11:38→12:08)
[2021-07-13] MEDS ORDERED: SCOPOLAMINE 1.5MG/72HR PATCH TRANSDERM ONE (12:00)
[2021-07-13] MEDS ORDERED: MIDAZOLAM 2 MG/2 ML VIAL IVP ONE (12:01)
[2021-07-13] MEDS ORDERED: LIDOCAINE 1% INJ 10MG/ML (20 ML MDV) ONE (12:43)
[2021-07-13] MEDS ORDERED: NEOSTIGMINE 1 MG/ML 10 ML VIAL ONE (12:43)
[2021-07-13] MEDS ORDERED: PROPOFOL 10 MG/ML 20 ML VIAL IV ONE (12:43)
[2021-07-13] MEDS ORDERED: GLYCOPYRROLATE 0.2 MG/ML 2 ML VIAL ONE (12:43)
[2021-07-13] MEDS ORDERED: ROCURONIUM 10 MG/ML (5 ML VIAL) IV ONE (12:43)
[2021-07-13] MEDS ORDERED: fentaNYL (PF) 50 MCG/ML 2 ML AMP ONE (12:43)
[2021-07-13] MEDS ORDERED: SUCCINYLCHOLINE CHLORIDE 100 MG/5 ML SYR IV ONE (12:43)
[2021-07-13] MEDS ORDERED: KETAMINE 10 MG/ML 20 ML VIAL ONE (12:43)
[2021-07-13] MEDS ORDERED: HYDROmorphone (PF) 1 MG/ML ONE (12:43)
[2021-07-13] MEDS ORDERED: MIDAZOLAM 2 MG/2 ML VIAL ONE (12:43)
[2021-07-13] MEDS ORDERED: BUPIVACAIN-EPI 0.25%-1:200,000 30 ML VIAL SQ ONE (13:05)
--- NOTE | 2021-07-13 13:21 | P.OP ---
Date of Procedure: 07/13/21 Preoperative Diagnosis: Cholecystitis Postoperative Diagnosis: Cholecystitis Procedure(s) Performed: Laparoscopic cholecystectomy Anesthesia: LANDON Surgeon: Catracho Kenyon Estimated Blood Loss (ml): 5 Pathology: other (Gallbladder) Condition: stable Disposition: PACU Description of Procedure: The patient was placed on the operating table. The patient received a general endotracheal tube anesthesia. The patients abdomen was prepped and draped in the usual sterile fashion. Through an infraumbilical stab incision, the fascia of the anterior abdominal wall was grasped with a pair of Kochers and then the Veress needle was placed in the peritoneal cavity. Position of the Veress needle was confirmed with positive drop test. The abdomen was then insufflated. After adequate insufflation, the 10 mm trocar was placed in the peritoneal cavity. Following this the laparoscope was placed in the peritoneal cavity. The patient was placed in the head-up, right side up position and then a 5 mm trocar was placed in the right lateral and right subcostal position under direct visualization. A 8 mm trocar was placed in the epigastric position. The gallbladder was grasped in the fundus and infundibulum. Traction on the gallbladder was placed in the lateral and the cephalad positions. The triangle of Calot was visualized.. The cystic duct was bluntly dissected until the union of the cystic duct and common bile duct was seen. A critical view of safety was achieved. The cystic duct was then divided and sealed with the Harmonic scissors. A PDS Endoloop was then placed throughout the cystic duct stump. The cystic artery divided and sealed with the Harmonic scissors. The gallbladder was then removed from the liver bed using Harmonic scissors. The gallbladder was then extracted through the epigastric port site. Operative field was checked for any bleeding spots and Harmonic scissors was used to coagulate the liver bed. The abdomen was irrigated. The trocars were removed. The skin was closed using interrupted 3-0 Vicryl suture. Dermabond dressing were applied. The patient tolerated the procedure well.
[2021-07-13] MEDS ORDERED: LACTATED RINGERS 1,000 ML IV ONE ×2 (13:59)
[2021-07-13] MEDS: LACTATED RINGERS 1,000 ML IV SCH (15:39)
[2021-07-14] MEDS: PIPERACILLIN-TAZOBACTAM 3.375 GM in SODIUM CHLORIDE 0.9% 100 ML IVPB SCH ×2 (01:14→09:55)
[2021-07-14] MEDS: HYDROmorphone 1 MG/ML 1 ML SYRINGE IVP PRN ×3 (03:52→13:43)
[2021-07-14] MEDS: SODIUM CHLORIDE 0.9% 1,000 ML IV SCH ×2 (07:51→15:56)
[2021-07-14] MEDS: PANTOPRAZOLE 40 MG TABLET PO SCH (07:55)
[2021-07-14 09:16] LABS: Basophils # (A) 0.03 X 10*3/uL (0.00-0.10); Basophils % (A) 0.3 %; Eosinophils # (A) 0.04 X 10*3/uL (0.04-0.35); Eosinophils % (A) 0.5 %; HCT 38.8 % (37.2-46.3); HGB 12.5 g/dL (12.0-15.0); Immature Grans, Automated 0.2 %; Lymphocytes # (A) 2.25 X 10*3/uL (0.90-5.00); Lymphocytes % (A) 25.5 %; MCH 30.6 pg (27.0-32.0); MCHC 32.2 g/dL (32.0-37.0); MCV 94.9 fL (80.0-97.0); Mean Platelet Volume 11.2 fL (9.5-12.2); Monocytes # (A) 0.83 X 10*3/uL (0.20-1.00); Monocytes % (A) 9.4 %; NRBC Per 100 WBC 0 /100 WBCS (0.0-0.0); Neutrophils # (A) 5.67 X 10*3/uL (1.80-7.70); Neutrophils % (A) 64.1 %; Platelet Count 243 X 10*3/uL (140-440); RBC 4.09 X 10*6/uL (4.10-5.20); RDW 12.5 % (11.5-14.5); WBC 8.84 X 10*3/uL (4.50-10.00)
[2021-07-14 09:27] LABS: African American GFR (CKD) 116.3 (60.0-200.0); BUN/Creat Ratio 11.63 Ratio (12.00-20.00); Blood Urea Nitrogen 9.3 mg/dL (9.0-27.0); Calcium 9.4 mg/dL (8.7-10.3); Non-African American GFR(CKD) 100.3 (60.0-200.0); Potassium 3.9 mmol/L (3.5-5.5)
[2021-07-14] MEDS: LACTATED RINGERS 1,000 ML IV SCH (12:28)
--- NOTE | 2021-07-14 15:04 | PN ---
PROGRESS NOTE DATE OF SERVICE: 07/14/2021 This 26-year-old woman who was admitted with acute cholecystitis underwent laparoscopic cholecystectomy. No chest pain. No palpitations. No fever. PHYSICAL EXAMINATION: Pulse is 58, blood pressure 107/52, respiration 18. HEENT: Conjunctivae normal. NECK: No jugular venous distention. CARDIOVASCULAR: S1, S2 muffled. RESPIRATION: Breath sounds diminished at the bases. ABDOMEN: Soft. Mild diffuse tenderness present; postoperative. LEGS: No edema. No swelling. NERVOUS SYSTEM: No focal deficit. LABS: CBC within normal limits. Sodium 139. Other labs are noted. ASSESSMENT: 1. Abdominal pain with possible acute cholecystitis, status post laparoscopic cholecystectomy. 2. Hyponatremia. 3. History of asthma. 4. History of sleep apnea. RECOMMENDATIONS AND DISCUSSION: I recommend to continue current medications, continue with the monitoring, symptomatic treatment. Otherwise, incentive spirometry and home medication to be resumed on discharge. Follow up with the primary physician. The rest of the recommendations per Surgery. MMODL / IJN: [id number] /
[2021-07-14 15:55] VITALS: BP 112/73; PULSE 64; RESP 16; TEMP 97.9
--- NOTE | 2021-07-14 16:03 | P.DS ---
Providers Date of admission: 07/14/21 13:58 Expected date of discharge: 07/14/21 Attending physician: Catracho Kenyon Consults: 07/13/21 10:54 Consult Physician Routine Consulting Provider: Minda Garibay Consult Reason/Comments: medical management Do you want consulting provider notified?: Yes Primary care physician: Viky Menendez - Discharge Diagnosis(es) (1) Acute upper abdominal pain Status: Acute (2) Cholecystitis Status: Acute Hospital Course: CHIEF COMPLAINT: Cholecystitis HISTORY OF PRESENT ILLNESS: The patient is a 26-year-old female admitted with upper abdominal pain. Workup demonstrated cholecystitis. She is status post cholecystectomy 07/13/2021. Patient tolerating diet. Pain control. ROS: No fevers or chills. No new chest pain. No productive sputum Vital Signs Temp 97.9 F 07/14/21 15:00 Pulse 64 07/14/21 15:00 Resp 16 07/14/21 15:00 BP 112/73 07/14/21 15:00 Pulse Ox 100 07/14/21 15:00 Intake & Output 07/14/21 07/14/21 07/15/21 06:59 18:59 06:59 Intake Total 300 360 Balance 300 360 Intake: Oral 300 360 Other: Voiding Method Toilet Toilet # Voids 3 5 # Bowel Movements 1 PHYSICAL EXAM: VITAL SIGNS: Reviewed CONSTITUTIONAL: Well developed and in no acute distress. EYES: Conjuctivae without sclera icterus. Extraocular movements grossly intact. HEAD, EARS, NOSE, THROAT: Moist buccal mucosa. Head is atraumatic, normocephalic. Hears conversational speech. No nasal drainage. RESPIRATORY: Non-labored respirations and equal bilateral excursions. CARDIOVASCULAR: Palpable 2+ radial pulses. ABDOMEN: Incisions clean dry and intact. No cellulitis. No peritonitis. MUSCULOSKELETAL: No gross deformity of the lower extremities noted. No clubbing. No cyanosis. SKIN: Good skin turgor. Well perfused. NEUROLOGIC: Cranial nerves II through XII grossly intact. No focal or lateralizing signs. PSYCH: Appropriate affect. Alert and oriented to person, place and time. CLINICAL LABS: Reviewed. LFTs within normal limits. ASSESSMENT: 1. Cholecystitis. PLAN: 1. Discharge instructions reviewed including may shower, no bath tub soaks for 2 weeks. 2. Diet as tolerated 3. Follow-up as outpatient in 1 week 4. Patient stable for discharge. Laboratory Last Values WBC 8.84 X 10*3/uL (4.50-10.00) 07/14/21 05:53 RBC 4.09 X 10*6/uL (4.10-5.20) L 07/14/21 05:53 Hgb 12.5 g/dL (12.0-15.0) 07/14/21 05:53 Hct 38.8 % (37.2-46.3) 07/14/21 05:53 MCV 94.9 fL (80.0-97.0) 07/14/21 05:53 MCH 30.6 pg (27.0-32.0) 07/14/21 05:53 MCHC 32.2 g/dL (32.0-37.0) 07/14/21 05:53 RDW 12.5 % (11.5-14.5) 07/14/21 05:53 Plt Count 243 X 10*3/uL (140-440) 07/14/21 05:53 MPV 11.2 fL (9.5-12.2) 07/14/21 05:53 Immature Gran % (Auto) 0.2 % 07/14/21 05:53 Absolute Nucleated RBC 0 X 10*3/uL (0.00-0.00) 07/14/21 05:53 Neutrophils % 64.1 % 07/14/21 05:53 Lymphocytes % 25.5 % 07/14/21 05:53 Monocytes % 9.4 % 07/14/21 05:53 Eosinophils % 0.5 % 07/14/21 05:53 Basophils % 0.3 % 07/14/21 05:53 Immature Gran # 0.02 X 10*3/uL (0.00-0.04) 07/14/21 05:53 Neutrophils # 5.67 X 10*3/uL (1.80-7.70) 07/14/21 05:53 Lymphocytes # 2.25 X 10*3/uL (0.90-5.00) 07/14/21 05:53 Monocytes # 0.83 X 10*3/uL (0.20-1.00) 07/14/21 05:53 Eosinophils # 0.04 X 10*3/uL (0.04-0.35) 07/14/21 05:53 Basophils # 0.03 X 10*3/uL (0.00-0.10) 07/14/21 05:53 NRBC/100 WBC Diff 0 /100 WBCS (0.0-0.0) 07/14/21 05:53 Sodium 139 mmol/L (135-145) 07/14/21 05:53 Potassium 3.9 mmol/L (3.5-5.5) 07/14/21 05:53 Chloride 103 mmol/L (96-109) 07/14/21 05:53 Carbon Dioxide 24.0 mmol/L (20.0-27.5) 07/14/21 05:53 Anion Gap 12.00 mmol/L (10.00-18.00) 07/14/21 05:53 BUN 9.3 mg/dL (9.0-27.0) 07/14/21 05:53 Creatinine 0.8 mg/dL (0.6-1.5) 07/14/21 05:53 Est GFR (CKD-EPI)AfAm 116.3 (60.0-200.0) 07/14/21 05:53 Est GFR (CKD-EPI)NonAf 100.3 (60.0-200.0) 07/14/21 05:53 BUN/Creatinine Ratio 11.63 Ratio (12.00-20.00) L 07/14/21 05:53 Glucose 87 mg/dL (70-110) 07/14/21 05:53 Calcium 9.4 mg/dL (8.7-10.3) 07/14/21 05:53 Total Bilirubin 1.0 mg/dL (0.2-1.3) 07/12/21 08:14 AST 19 U/L (14-36) 07/12/21 08:14 ALT 11 U/L (4-34) 07/12/21 08:14 Alkaline Phosphatase 48 U/L (38-126) 07/12/21 08:14 Total Protein 6.6 g/dL (6.3-8.2) 07/12/21 08:14 Albumin 3.7 g/dL (3.5-5.0) 07/12/21 08:14 Amylase 85 U/L (30-110) 07/11/21 20:05 Lipase 34 U/L (23-300) 07/12/21 08:14 Urine Color Yellow 07/11/21 22:59 Urine Appearance Clear (Clear) 07/11/21 22:59 Urine pH 5.5 (5.0-8.0) 07/11/21 22:59 Ur Specific [place] 1.021 (1.001-1.035) 07/11/21 22:59 Urine Protein Negative (Negative) 07/11/21 22:59 Urine Glucose (UA) Negative (Negative) 07/11/21 22:59 Urine Ketones 1+ (Negative) H 07/11/21 22:59 Urine Blood Negative (Negative) 07/11/21 22:59 Urine Nitrite Negative (Negative) 07/11/21 22:59 Urine Bilirubin Negative (Negative) 07/11/21 22:59 Urine Urobilinogen <2.0 mg/dL (<2.0) 07/11/21 22:59 Ur Leukocyte Esterase Negative (Negative) 07/11/21 22:59 Urine HCG, Qual Not Detected (Not Detectd) 07/11/21 22:59 Patient Condition at Discharge: Stable Plan - Discharge Summary Discharge Rx Participant: No New Discharge Prescriptions: New Acetaminophen Tab [Tylenol] 650 mg PO Q6H #30 tab oxyCODONE HCL [OxyIR] 5 mg PO Q6H PRN 3 Days #10 tab PRN Reason: Pain Continue ondansetron HCL [Zofran] 8 mg PO Q8H PRN PRN Reason: Nausea And Vomiting Omeprazole 20 mg PO DAILY Discharge Medication List Omeprazole 20 mg PO DAILY 07/03/21 [History] ondansetron HCL [Zofran] 8 mg PO Q8H PRN 07/03/21 [History] Acetaminophen Tab [Tylenol] 650 mg PO Q6H #30 tab 07/13/21 [Rx] oxyCODONE HCL [OxyIR] 5 mg PO Q6H PRN 3 Days #10 tab 07/13/21 [Rx] Follow up Appointment(s)/Referral(s): Viky Menendez DO [Primary Care Provider] - 1-2 days Catracho Kenyon MD [STAFF PHYSICIAN] - 1 Week Patient Instructions/Handouts: *Surgery [facility] - Managing Your Pain After Surgery Without Opioids, Laparoscopic Cholecystectomy (DC) Activity/Diet/Wound Care/Special Instructions: Recommend low-fat diet for the next 2 days. No lifting over 10 pounds in 2 weeks until July 20. August shower. No bath tub soaks for two weeks until July 20. Diet as tolerated. Use Tylenol, simethicone and ibuprofen or Aleve scheduled for the next 24-48 hours for best pain relief. Use ice along incisions for today to prevent swelling. Discharge Disposition: HOME SELF-CARE
== END 2021-07-14 17:09 | disposition home or self-care (01) | DRG 418 ==
LOC: EC 17:58 → 6NMEDSUR 23:10 → OBSVTOIN 07-14 13:58
PROVIDERS: ADMIT Surgery; ATTEND Surgery
PROC: 0FT44ZZ Resection of Gallbladder, Percutaneous Endoscopic Approach (ICD-10-PCS; principal; 2021-07-13 12:30)
DX: K81.0 Acute cholecystitis (principal); E87.1 Hypo-osmolality and hyponatremia; F17.210 Nicotine dependence, cigarettes, uncomplicated; F41.9 Anxiety disorder, unspecified; J45.909 Unspecified asthma, uncomplicated; G47.30 Sleep apnea, unspecified
CPT/HCPCS: 36415; 74018; 76705; 80048; 80053; 81003; 81025; 82150; 83690; 85025; 88304; 96361; 96374; 96375; 99285

== ENCOUNTER 2021-07-18 13:19 | Emergency (ER) | payer BC ==
[2021-07-18 13:36] VITALS: RESP 18; TEMP 98.1
--- NOTE | 2021-07-18 14:34 | CT ---
EXAMINATION TYPE: CT abdomen pelvis w con DATE OF EXAM: 07/18/2021 HISTORY: Post op rocky July 13/2022. Pain, possibly popped a suture. CT DLP: 440.8mGycm Automated Exposure Control for Dose Reduction was Utilized. CONTRAST: CT scan of the abdomen and pelvis is performed without oral but with IV Contrast, patient injected wi th 100 mL of Isovue 300. COMPARISON: None. FINDINGS: LUNG BASES: No significant abnormality is appreciated. LIVER/GB: Small amount of ill-defined fluid and fat stranding at level of the gallbladder fossa is no nspecific surrounding and just below cholecystectomy clips coronal image 51. No biliary dilatation. PANCREAS: No significant abnormality is seen. SPLEEN: No significant abnormality is seen. ADRENALS: No significant abnormality is seen. KIDNEYS: No significant abnormality is seen. BOWEL: Suboptimal evaluation of bowel without enteric contrast and patient having little intra-abdomi nal fat. No suspicious small or large bowel dilatation is seen. Nltd-cy-piyhfqow prominence in the ri ght colon. UTERUS/ADNEXA: Anteverted uterus. Small amount of free fluid in pelvic cul-de-sac is nonspecific. LYMPH NODES: No greater than 1cm abdominal or pelvic lymph nodes are appreciated. OSSEOUS STRUCTURES: No significant abnormality is seen. OTHER: No significant additional abnormality is seen. IMPRESSION: 1. Small amount of ill-defined fluid gallbladder fossa and in pelvic cul-de-sac is nonspecific. No we ll-formed fluid collection or drainable abscess. No free air. 2. Overall nonobstructive bowel gas pattern. Mild to moderate proximal colonic fecal stasis seen.
[2021-07-18] MEDS ORDERED: SODIUM CHLORIDE 0.9% 1,000 ML IV STA (17:39)
[2021-07-18] MEDS ORDERED: HYDROmorphone 1 MG/ML 1 ML SYRINGE IVP STA (17:39)
[2021-07-18] MEDS ORDERED: PANTOPRAZOLE 40 MG/10 ML VIAL IVP STA (17:39)
--- NOTE | 2021-07-18 17:41 | ED ---
General Adult HPI - General Chief complaint: Recheck/Abnormal Lab/Rx Stated complaint: post op pain Time Seen by Provider: 07/18/21 17:21 Source: patient, RN notes reviewed Mode of arrival: ambulatory Limitations: no limitations - History of Present Illness Initial comments: Patient is a pleasant 26-year-old female presenting to the emergency Department with abdominal discomfort. Patient did have surgery this past week on her gallbladder with Dr. Kenyon. Patient has been doing fine. Patient was yelling at her dog when she felt a pop in her abdomen. Discomfort has been persistent since that time. No nausea vomiting. No chest pain. No dyspnea. Discomfort increases with movement. Patient has been doing fine otherwise since surgery. - Related Data Home Medications Medication Instructions Recorded Confirmed Omeprazole 20 mg PO DAILY 07/03/21 07/18/21 ondansetron HCL [Zofran] 8 mg PO Q8H PRN 07/03/21 07/18/21 Acetaminophen Tab [Tylenol] 650 mg PO Q6H PRN 07/18/21 07/18/21 Previous Rx's Medication Instructions Recorded oxyCODONE HCL [OxyIR] 5 mg PO Q6H PRN 3 Days #10 tab 07/13/21 Allergies Allergy/AdvReac Type Severity Reaction Status Date / Time bee venom protein (honey bee) Allergy Severe Anaphylaxis Verified 07/18/21 17:47 chocolate flavor Allergy Severe Rash/Hives Verified 07/18/21 17:47 kiwi Allergy Rash/Hives Verified 07/18/21 17:47 Review of Systems ROS Statement: Those systems with pertinent positive or pertinent negative responses have been documented in the HPI. ROS Other: All systems not noted in ROS Statement are negative. Constitutional: Denies: fever Eyes: Denies: eye pain ENT: Denies: ear pain Respiratory: Denies: cough Cardiovascular: Denies: chest pain Endocrine: Denies: fatigue Gastrointestinal: Reports: as per HPI, abdominal pain. Denies: nausea, vomiting Genitourinary: Denies: dysuria Musculoskeletal: Denies: back pain Skin: Denies: rash Neurological: Denies: weakness Past Medical History Past Medical History: Asthma, Sleep Apnea/CPAP/BIPAP Additional Past Medical History / Comment(s): DDD, RU as a child. History of Any Multi-Drug Resistant Organisms: None Reported Past Surgical History: Cholecystectomy Additional Past Surgical History / Comment(s): EGD 07/05/21 Past Anesthesia/Blood Transfusion Reactions: No Reported Reaction Additional Past Anesthesia/Blood Transfusion Reaction / Comment(s): FIRST ANESTHETIC Past Psychological History: Anxiety, Depression Smoking Status: Current every day smoker Past Alcohol Use History: None Reported Past Drug Use History: Marijuana - Past Family History Mother Additional Family Medical History / Comment(s): IBS, anxiety, depression Father Family Medical History: Coronary Artery Disease (CAD), Hypertension, Myocardial Infarction ([place]) Additional Family Medical History / Comment(s): [place] x2 with first one in mid 40s. DDD General Exam Limitations: no limitations General appearance: alert, in no apparent distress Head exam: Present: normocephalic Eye exam: Present: normal appearance Neck exam: Present: normal inspection Respiratory exam: Present: normal lung sounds bilaterally Cardiovascular Exam: Present: regular rate, normal rhythm Expanded Peripheral pulses: 2+: Posterior Tibialis (R), Posterior Tibialis (L) GI/Abdominal exam: Present: soft, tenderness (Moderate epigastric tenderness). Absent: distended Extremities exam: Present: normal inspection Neurological exam: Present: alert Psychiatric exam: Present: normal affect, normal mood Skin exam: Present: normal color Course Vital Signs 07/18/21 13:29 Temperature 98.1 F Pulse Rate 87 Respiratory 18 Rate Blood Pressure 126/84 O2 Sat by Pulse 100 Oximetry Medical Decision Making - Medical Decision Making Patient reevaluated and resting comfortably at bedside. Patient is feeling much better and tolerating oral intake. - Lab Data Result diagrams: 07/18/21 18:26 07/18/21 18:26 Lab Results 07/18/21 07/18/21 07/18/21 Range/Units 18:26 18:26 18:26 WBC 11.6 H (3.8-10.6) k/uL RBC 4.58 (3.80-5.40) m/uL Hgb 14.0 (11.4-16.0) gm/dL Hct 43.7 (34.0-46.0) % MCV 95.4 (80.0-100.0) fL MCH 30.6 (25.0-35.0) pg MCHC 32.0 (31.0-37.0) g/dL RDW 12.4 (11.5-15.5) % Plt Count 251 (150-450) k/uL MPV 8.4 Neutrophils % 75 % Lymphocytes % 18 % Monocytes % 5 % Eosinophils % 0 % Basophils % 1 % Neutrophils # 8.6 H (1.3-7.7) k/uL Lymphocytes # 2.1 (1.0-4.8) k/uL Monocytes # 0.5 (0-1.0) k/uL Eosinophils # 0.1 (0-0.7) k/uL Basophils # 0.1 (0-0.2) k/uL PT 11.4 (9.0-12.0) sec INR 1.1 (<1.2) APTT 26.2 (22.0-30.0) sec Sodium 137 (137-145) mmol/L Potassium 4.1 (3.5-5.1) mmol/L Chloride 104 (98-107) mmol/L Carbon Dioxide 22 (22-30) mmol/L Anion Gap 11 mmol/L BUN 14 (7-17) mg/dL Creatinine 0.73 (0.52-1.04) mg/dL Est GFR (CKD-EPI)AfAm >90 (>60 ml/min/1.73 sqM) Est GFR (CKD-EPI)NonAf >90 (>60 ml/min/1.73 sqM) Glucose 95 (74-99) mg/dL Calcium 9.6 (8.4-10.2) mg/dL Total Bilirubin 0.5 (0.2-1.3) mg/dL AST 18 (14-36) U/L ALT 12 (4-34) U/L Alkaline Phosphatase 53 (38-126) U/L Total Protein 8.1 (6.3-8.2) g/dL Albumin 4.8 (3.5-5.0) g/dL Amylase 67 (30-110) U/L Lipase 30 (23-300) U/L - Radiology Data Radiology results: report reviewed (Computed tomography scan of abdomen and pelvis shows mild fluid in the gallbladder cul-de-sac. No abscess. Obstructive bowel gas pattern) Disposition Clinical Impression: Postoperative abdominal pain Disposition: HOME SELF-CARE Condition: Stable Instructions (If sedation given, give patient instructions): Abdominal Pain (ED) Additional Instructions: Please follow-up with Dr. Kenyon Friday as planned. Return for increased pain, vomiting, fever, worsening or changing symptoms or other concerns. Is patient prescribed a controlled substance at d/c from ED?: No Referrals: Viky Menendez DO [Primary Care Provider] - 1-2 days Catracho Kenyon MD [Family Provider] - 1-2 days Time of Disposition: 18:57
[2021-07-18] MEDS ORDERED: ONDANSETRON 4 MG/2 ML VIAL IVP STA (18:29)
[2021-07-18 18:31] LABS: Basophils # (A) 0.1 k/uL (0-0.2); Basophils % (A) 1 %; Eosinophils # (A) 0.1 k/uL (0-0.7); Eosinophils % (A) 0 %; HCT 43.7 % (34.0-46.0); Lymphocytes # (A) 2.1 k/uL (1.0-4.8); Lymphocytes % (A) 18 %; MCH 30.6 pg (25.0-35.0); MCV 95.4 fL (80.0-100.0); Mean Platelet Volume 8.4; Monocytes # (A) 0.5 k/uL (0-1.0); Monocytes % (A) 5 %; Neutrophils # (A) 8.6 k/uL (1.3-7.7); Neutrophils % (A) 75 %; Platelet Count 251 k/uL (150-450); RBC 4.58 m/uL (3.80-5.40); RDW 12.4 % (11.5-15.5); WBC 11.6 k/uL (3.8-10.6)
[2021-07-18 18:39] LABS: ALT 12 U/L (4-34); AST 18 U/L (14-36); African American GFR (CKD) >90 (>60 ml/min/1.73 sqM); Albumin 4.8 g/dL (3.5-5.0); Alkaline Phosphatase 53 U/L (38-126); Amylase 67 U/L (30-110); Anion Gap 11 mmol/L; Blood Urea Nitrogen 14 mg/dL (7-17); Calcium 9.6 mg/dL (8.4-10.2); Carbon Dioxide 22 mmol/L (22-30); Chloride 104 mmol/L (98-107); Glucose 95 mg/dL (74-99); Lipase 30 U/L (23-300); Non-African American GFR(CKD) >90 (>60 ml/min/1.73 sqM); Potassium 4.1 mmol/L (3.5-5.1); Sodium 137 mmol/L (137-145); Total Bilirubin 0.5 mg/dL (0.2-1.3); Total Protein 8.1 g/dL (6.3-8.2)
[2021-07-18 18:40] LABS: INR 1.1 (<1.2); Partial Thromboplastin Time 26.2 sec (22.0-30.0); Prothrombin Time 11.4 sec (9.0-12.0)
[2021-07-18 19:33] VITALS: BP 112/89; PULSE 71
== END 2021-07-18 19:33 | disposition home or self-care (01) ==
LOC: EC 13:19
DX: G89.18 Other acute postprocedural pain (principal); R10.13 Epigastric pain; F17.200 Nicotine dependence, unspecified, uncomplicated; F12.90 Cannabis use, unspecified, uncomplicated
CPT/HCPCS: 36415; 80053; 82150; 83690; 85025; 85610; 85730; 74177; 99284; 96374; 96375 ×2; 96361; J2405; J1170; C9113; Q9967

== ENCOUNTER 2022-02-03 17:25 | Emergency (ER) | payer BC, OTHER ==
[2022-02-03 17:33] VITALS: RESP 16; TEMP 97.8
[2022-02-03] MEDS ORDERED: MORPHINE SULFATE 4 MG/ML SYRINGE IV STA (17:55)
[2022-02-03] MEDS ORDERED: SODIUM CHLORIDE 0.9% 1,000 ML IV STA (17:55)
[2022-02-03 18:11] LABS: HCT 37.3 % (34.0-46.0); HGB 12.7 gm/dL (11.4-16.0); MCH 32.1 pg (25.0-35.0); MCHC 34.1 g/dL (31.0-37.0); MCV 94.2 fL (80.0-100.0); Mean Platelet Volume 8.8; Platelet Count 232 k/uL (150-450); RBC 3.96 m/uL (3.80-5.40); RDW 12.8 % (11.5-15.5); WBC 6.2 k/uL (3.8-10.6)
[2022-02-03] MEDS ORDERED: ONDANSETRON 4 MG/2 ML VIAL IVP STA (18:11)
[2022-02-03 18:21] LABS: ALT 22 U/L (4-34); AST 24 U/L (14-36); African American GFR (CKD) >90 (>60 ml/min/1.73 sqM); Albumin 3.7 g/dL (3.5-5.0); Alkaline Phosphatase 38 U/L (38-126); Anion Gap 6 mmol/L; Blood Urea Nitrogen 20 mg/dL (7-17); Calcium 7.9 mg/dL (8.4-10.2); Carbon Dioxide 24 mmol/L (22-30); Chloride 107 mmol/L (98-107); Glucose 84 mg/dL (74-99); Lipase 44 U/L (23-300); Non-African American GFR(CKD) >90 (>60 ml/min/1.73 sqM); Potassium 3.8 mmol/L (3.5-5.1); Sodium 137 mmol/L (137-145); Total Bilirubin 0.6 mg/dL (0.2-1.3); Total Protein 6.1 g/dL (6.3-8.2)
[2022-02-03 18:49] LABS: Eosinophils # (M) 0.06 k/uL (0-0.7); Lymphocytes # (M) 2.79 k/uL (1.0-4.8); Monocytes # (M) 0.43 k/uL (0-1.0); Neutrophils # (M) 2.91 k/uL (1.3-7.7); Neutrophils % (M) 47 %; Nucleated Red Blood Cells 0 /100 WBC (0-0); Total Cells Counted 100
[2022-02-03] MEDS ORDERED: KETOROLAC 15 MG/ML 1 ML VIAL IVP STA (19:14)
--- NOTE | 2022-02-03 19:14 | ED ---
Abdominal Pain HPI - General Chief Complaint: Abdominal Pain Stated Complaint: abd pain Time Seen by Provider: 02/03/22 17:30 Source: EMS Mode of arrival: EMS Limitations: no limitations - History of Present Illness Initial Comments: 26-year-old female with past medical history of cholecystectomy presents to the emergency department with right upper quadrant abdominal pain. States it's been going on for the past 2 days. Feels nauseated without vomiting. The pain is worse with movement and better with rest. Denies any chest pain or shortness of breath. No fevers or chills. She admits to several episodes of loose watery stool. No black or bloody stools. States the pain is consistent since before she had her gallbladder removed. Denies NSAID or alcohol use. No concern for . Patient was given 15 mg of Toradol by EMS prior to hospital arrival. Reports it is greatly improved her symptoms. No other alleviating, precipitating or modifying factors - Related Data Home Medications Medication Instructions Recorded Confirmed Omeprazole 20 mg PO DAILY 07/03/21 07/18/21 ondansetron HCL [Zofran] 8 mg PO Q8H PRN 07/03/21 07/18/21 Acetaminophen Tab [Tylenol] 650 mg PO Q6H PRN 07/18/21 07/18/21 Previous Rx's Medication Instructions Recorded oxyCODONE HCL [OxyIR] 5 mg PO Q6H PRN 3 Days #10 tab 07/13/21 Ketorolac [Toradol] 10 mg PO Q8HR #15 tab 02/03/22 Ondansetron Odt [Zofran Odt] 4 mg PO Q8HR PRN #15 tab 02/03/22 Allergies Allergy/AdvReac Type Severity Reaction Status Date / Time bee venom protein (honey bee) Allergy Severe Anaphylaxis Verified 07/18/21 17:47 chocolate flavor Allergy Severe Rash/Hives Verified 07/18/21 17:47 kiwi Allergy Rash/Hives Verified 07/18/21 17:47 Review of Systems ROS Statement: Those systems with pertinent positive or pertinent negative responses have been documented in the HPI. ROS Other: All systems not noted in ROS Statement are negative. Past Medical History Past Medical History: Asthma, Sleep Apnea/CPAP/BIPAP Additional Past Medical History / Comment(s): DDD, RU as a child. History of Any Multi-Drug Resistant Organisms: None Reported Past Surgical History: Cholecystectomy Additional Past Surgical History / Comment(s): EGD 07/05/21 Past Anesthesia/Blood Transfusion Reactions: No Reported Reaction Additional Past Anesthesia/Blood Transfusion Reaction / Comment(s): FIRST ANESTHETIC Past Psychological History: Anxiety, Depression Smoking Status: Current every day smoker Past Alcohol Use History: None Reported Past Drug Use History: Marijuana - Past Family History Mother Additional Family Medical History / Comment(s): IBS, anxiety, depression Father Family Medical History: Coronary Artery Disease (CAD), Hypertension, Myocardial Infarction ([place]) Additional Family Medical History / Comment(s): [place] x2 with first one in mid 40s. DDD General Exam Limitations: no limitations General appearance: alert, in no apparent distress Head exam: Present: atraumatic, normocephalic, normal inspection Eye exam: Present: normal appearance, PERRL, EOMI. Absent: scleral icterus, conjunctival injection, periorbital swelling ENT exam: Present: normal exam, mucous membranes moist Neck exam: Present: normal inspection. Absent: tenderness, meningismus, lymphadenopathy Respiratory exam: Present: normal lung sounds bilaterally. Absent: respiratory distress, wheezes, rales, rhonchi, stridor Cardiovascular Exam: Present: regular rate, normal rhythm, normal heart sounds. Absent: systolic murmur, diastolic murmur, rubs, gallop, clicks GI/Abdominal exam: Present: soft, tenderness (Right upper quadrant), normal bowel sounds. Absent: distended, guarding, rebound, rigid Extremities exam: Present: normal inspection, full ROM, normal capillary refill. Absent: tenderness, pedal edema, joint swelling, calf tenderness Back exam: Present: normal inspection Neurological exam: Present: alert, oriented X3, CN II-XII intact Psychiatric exam: Present: normal affect, normal mood Skin exam: Present: warm, dry, intact, normal color. Absent: rash Course Vital Signs 02/03/22 02/03/22 17:27 19:58 Temperature 97.8 F Pulse Rate 66 57 L Respiratory 16 16 Rate Blood Pressure 118/81 118/76 O2 Sat by Pulse 100 100 Oximetry Medical Decision Making - Medical Decision Making Upon arrival patient is placed into room 10. Thorough history and physical exam was performed. IV access was established. Patient does request that we stay away from any opiate pain medications. She was given a dose of Toradol by EMS and is given a second dose here in the emergency department. Patient also given a liter bolus of normal saline. Laboratory studies are reviewed. CT of the abdomen and pelvis is performed which demonstrates. Portal edema which is nonspecific. Patient is relatively pain-free at this time. She is instructed that she will be discharged home with pain control. Needs to call make an appointment with Dr. Guadalupe for this nonspecific finding. Patient understood and was agreeable. Return if she has any new or uncontrolled symptoms. Patient agreeable and discharged home in stable condition - Lab Data Result diagrams: 02/03/22 18:03 02/03/22 18:03 Lab Results 02/03/22 02/03/22 02/03/22 Range/Units 18:03 18:03 18:03 WBC 6.2 (3.8-10.6) k/uL RBC 3.96 (3.80-5.40) m/uL Hgb 12.7 (11.4-16.0) gm/dL Hct 37.3 (34.0-46.0) % MCV 94.2 (80.0-100.0) fL MCH 32.1 (25.0-35.0) pg MCHC 34.1 (31.0-37.0) g/dL RDW 12.8 (11.5-15.5) % Plt Count 232 (150-450) k/uL MPV 8.8 Neutrophils % (Manual) 47 % Lymphocytes % (Manual) 45 % Monocytes % (Manual) 7 % Eosinophils % (Manual) 1 % Neutrophils # (Manual) 2.91 (1.3-7.7) k/uL Lymphocytes # (Manual) 2.79 (1.0-4.8) k/uL Monocytes # (Manual) 0.43 (0-1.0) k/uL Eosinophils # (Manual) 0.06 (0-0.7) k/uL Nucleated RBCs 0 (0-0) /100 WBC Manual Slide Review Performed Sodium (137-145) mmol/L Potassium (3.5-5.1) mmol/L Chloride (98-107) mmol/L Carbon Dioxide (22-30) mmol/L Anion Gap mmol/L BUN (7-17) mg/dL Creatinine (0.52-1.04) mg/dL Est GFR (CKD-EPI)AfAm (>60 ml/min/1.73 sqM) Est GFR (CKD-EPI)NonAf (>60 ml/min/1.73 sqM) Glucose (74-99) mg/dL Plasma Lactic Acid [place] (0.7-2.0) mmol/L Calcium (8.4-10.2) mg/dL Total Bilirubin (0.2-1.3) mg/dL AST (14-36) U/L ALT (4-34) U/L Alkaline Phosphatase (38-126) U/L Total Protein (6.3-8.2) g/dL Albumin (3.5-5.0) g/dL Lipase (23-300) U/L Urine Color Yellow Urine Appearance Clear (Clear) Urine pH 6.0 (5.0-8.0) Ur Specific [place] >1.050 H (1.001-1.035) Urine Protein Trace H (Negative) Urine Glucose (UA) Negative (Negative) Urine Ketones 1+ H (Negative) Urine Blood Negative (Negative) Urine Nitrite Negative (Negative) Urine Bilirubin Negative (Negative) Urine Urobilinogen <2.0 (<2.0) mg/dL Ur Leukocyte Esterase Negative (Negative) Urine HCG, Qual Not Detected (Not Detectd) 02/03/22 02/03/22 Range/Units 18:03 18:03 WBC (3.8-10.6) k/uL RBC (3.80-5.40) m/uL Hgb (11.4-16.0) gm/dL Hct (34.0-46.0) % MCV (80.0-100.0) fL MCH (25.0-35.0) pg MCHC (31.0-37.0) g/dL RDW (11.5-15.5) % Plt Count (150-450) k/uL MPV Neutrophils % (Manual) % Lymphocytes % (Manual) % Monocytes % (Manual) % Eosinophils % (Manual) % Neutrophils # (Manual) (1.3-7.7) k/uL Lymphocytes # (Manual) (1.0-4.8) k/uL Monocytes # (Manual) (0-1.0) k/uL Eosinophils # (Manual) (0-0.7) k/uL Nucleated RBCs (0-0) /100 WBC Manual Slide Review Sodium 137 (137-145) mmol/L Potassium 3.8 (3.5-5.1) mmol/L Chloride 107 (98-107) mmol/L Carbon Dioxide 24 (22-30) mmol/L Anion Gap 6 mmol/L BUN 20 H (7-17) mg/dL Creatinine 0.62 (0.52-1.04) mg/dL Est GFR (CKD-EPI)AfAm >90 (>60 ml/min/1.73 sqM) Est GFR (CKD-EPI)NonAf >90 (>60 ml/min/1.73 sqM) Glucose 84 (74-99) mg/dL Plasma Lactic Acid [place] <0.5 L (0.7-2.0) mmol/L Calcium 7.9 L (8.4-10.2) mg/dL Total Bilirubin 0.6 (0.2-1.3) mg/dL AST 24 (14-36) U/L ALT 22 (4-34) U/L Alkaline Phosphatase 38 (38-126) U/L Total Protein 6.1 L (6.3-8.2) g/dL Albumin 3.7 (3.5-5.0) g/dL Lipase 44 (23-300) U/L Urine Color Urine Appearance (Clear) Urine pH (5.0-8.0) Ur Specific [place] (1.001-1.035) Urine Protein (Negative) Urine Glucose (UA) (Negative) Urine Ketones (Negative) Urine Blood (Negative) Urine Nitrite (Negative) Urine Bilirubin (Negative) Urine Urobilinogen (<2.0) mg/dL Ur Leukocyte Esterase (Negative) Urine HCG, Qual (Not Detectd) - EKG Data EKG Comments: EKG demonstrates sinus bradycardia with a rate of 59. [place] interval 217. QRS 93. QTC of 389. No acute ST segment elevations or depressions Disposition Clinical Impression: Acute upper abdominal pain Disposition: HOME SELF-CARE Condition: Stable Instructions (If sedation given, give patient instructions): Abdominal Pain (ED) Additional Instructions: Please follow-up with Dr. Kenyon and Dr. Serrano for re-evaluation and further testing. Take the pain and nausea medications as directed. Return for any new or worsening symptoms Prescriptions: Ketorolac [Toradol] 10 mg PO Q8HR #15 tab Ondansetron Odt [Zofran Odt] 4 mg PO Q8HR PRN #15 tab PRN Reason: Nausea Is patient prescribed a controlled substance at d/c from ED?: No Referrals: Viky Menendez DO [Primary Care Provider] - 1-2 days Funmi Serrano MD [STAFF PHYSICIAN] - 1-2 days Catracho Kenyon MD [STAFF PHYSICIAN] - 1-2 days Time of Disposition: 20:16
--- NOTE | 2022-02-03 19:19 | CT ---
EXAMINATION TYPE: CT abdomen pelvis w con CT DLP: 382.9 mGycm, Automated exposure control for dose reduction was used. DATE OF EXAM: 02/03/2022 7:00 PM COMPARISON: CT abdomen pelvis most recent from CLINICAL INDICATION:Female, 26 years old with history of abdominal pain; abdominal pain few days TECHNIQUE: Axial CT of the abdomen and pelvis. Sagittal and coronal reformats were created on a [employer] workstation. Contrast used:100 mL of Isovue 300 with IV Contrast, Oral contrast used: without Oral Contrast FINDINGS: LOWER CHEST: Unremarkable ABDOMEN LIVER: Diffuse periportal edema. No suspicious hepatic lesions. GALLBLADDER AND BILE DUCTS: Common bile duct is normal in appearance. Gallbladder is surgically absen t. PANCREAS: Unremarkable. SPLEEN: Unremarkable. ADRENAL GLANDS: Unremarkable. KIDNEYS AND URETERS: No evidence of hydronephrosis or renal calculus. The ureters are unremarkable. PELVIS BLADDER: Unremarkable REPRODUCTIVE: Unremarkable. ABDOMEN & PELVIS STOMACH AND BOWEL: Stomach and duodenum are unremarkable No evidence of bowel obstruction. PERITONEUM: Trace free fluid seen within the pelvis, not unexpected in patients of reproductive age a nd likely physiologic. No pneumoperitoneum. VASCULATURE: No evidence of aortic aneurysm. 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 No acute osseous abnormalities. LYMPH NODES: No gross evidence for lymphadenopathy. SOFT TISSUE/ABDOMINAL WALL: Unremarkable IMPRESSION: 1. Mild periportal edema which is non-specific and can be seen with aggressive fluid hydration. Othe rwise no acute intra-abdominal or intrapelvic findings. 2. Trace free pelvic fluid, likely physiologic.
[2022-02-03 19:58] LABS: Appearance,Urine Clear (Clear); Bilirubin,Urine Negative (Negative); Blood,Urine Negative (Negative); Color,Urine Yellow; Glucose,Urine (UA) Negative (Negative); Ketones,Urine 1+ (Negative); Leukocyte Esterase,Urine Negative (Negative); Nitrite,Urine Negative (Negative); Protein,Urine Trace (Negative); Urobilinogen,Urine <2.0 mg/dL (<2.0)
[2022-02-03 19:59] LABS: Specific Gravity,Urine >1.050 (1.001-1.035)
[2022-02-03 20:00] VITALS: BP 118/76; PULSE 57
== END 2022-02-03 20:27 | disposition home or self-care (01) ==
LOC: EC 17:25
DX: R10.11 Right upper quadrant pain (principal); J45.909 Unspecified asthma, uncomplicated; F17.200 Nicotine dependence, unspecified, uncomplicated; Z91.018 Allergy to other foods; Z91.030 Bee allergy status
CPT/HCPCS: 36415; 93005; 80053; 83605; 83690; 85025; 81003; 81025; 74177; 99285; 96374; 96375; 96361; J2405; J1885; Q9967

== ENCOUNTER 2022-02-18 08:01 | Day surgery (SDC) | payer OTHER ==
[2022-02-18] MEDS: LACTATED RINGERS 1,000 ML IV SCH ×2 (06:40→08:40)
[2022-02-18] MEDS ORDERED: LIDOCAINE 1% (10MG/ML) FOR IV START INTRADERMA PRN (08:06)
[2022-02-18 08:46] VITALS: RESP 16; TEMP 98.9
--- NOTE | 2022-02-18 08:54 | P.GSHP ---
History of Present Illness H&P Date: 02/18/22 Chief Complaint: Gastritis, GI bleed 18-year-old female who said issues with rectal bleeding. She's also some epigastric pain area she'll undergo EGD tonight for possible gastritis and colonoscopy for GI bleed. Past Medical History Past Medical History: Asthma, GERD/Reflux, Liver Disease, Sleep Apnea/CPAP/BIPAP Additional Past Medical History / Comment(s): DDD- hereditary, obstructive sleep apnea as a child due to stress, no machine, started and continues therapy. periportal edema. bloody stools. abd pain when eating History of Any Multi-Drug Resistant Organisms: None Reported Past Surgical History: Cholecystectomy Additional Past Surgical History / Comment(s): EGD 07/05/21 Past Anesthesia/Blood Transfusion Reactions: No Reported Reaction Additional Past Anesthesia/Blood Transfusion Reaction / Comment(s): has nausea regularly. no blood transfusions Smoking Status: Current every day smoker, Vaper - Past Family History Mother Family Medical History: No Reported History Additional Family Medical History / Comment(s): IBS, anxiety, depression Father Family Medical History: Coronary Artery Disease (CAD), Hypertension, Myocardial Infarction ([place]) Additional Family Medical History / Comment(s): [place] x2 with first one in mid 40s. DDD Medications and Allergies Home Medications Medication Instructions Recorded Confirmed Type Ketorolac [Toradol] 10 mg PO Q8HR #15 tab 02/03/22 02/18/22 Rx Ondansetron Odt [Zofran Odt] 4 mg PO Q8HR PRN #15 tab 02/03/22 02/18/22 Rx FLUoxetine HCL [PROzac] 10 mg PO HS 02/14/22 02/18/22 History Unk Albuterol Inhaler 2 puff INHALATION QID PRN 02/14/22 02/18/22 History Allergies Allergy/AdvReac Type Severity Reaction Status Date / Time bee venom protein (honey bee) Allergy Severe Anaphylaxis Verified 02/18/22 08:31 chocolate flavor Allergy Severe Rash/Hives Verified 02/18/22 08:31 kiwi Allergy Rash/Hives Verified 02/18/22 08:31 Surgical - Exam Vital Signs Temp Pulse Resp BP Pulse Ox 98.9 F 67 16 116/66 98 02/18/22 08:40 02/18/22 08:40 02/18/22 08:40 02/18/22 08:40 02/18/22 08:40 - General well developed, well nourished, no distress - Eyes PERRL - ENT normal pinna - Neck no masses - Respiratory normal expansion - Cardiovascular Rhythm: regular - Abdomen Abdomen: soft, non tender Assessment and Plan Assessment: Gastritis, GI bleed. We'll perform EGD and colonoscopy.
[2022-02-18] MEDS ORDERED: LIDOCAINE 2% INJ 20 MG/ML (2 ML VIAL) ONE (09:01)
[2022-02-18] MEDS ORDERED: PROPOFOL 10 MG/ML 20 ML VIAL IV ONE (09:01)
--- NOTE | 2022-02-18 09:20 | P.OP ---
Date of Procedure: 02/18/22 Preoperative Diagnosis: Gastritis Rectal bleeding Postoperative Diagnosis: Antral gastritis Internal and external hemorrhoids Procedure(s) Performed: EGD Colonoscopy Anesthesia: MAC Surgeon: Catracho Kenyon Pathology: other (Antrum) Condition: stable Description of Procedure: She was placed on the endoscopy table in the lateral position. She received IV sedation. The gastroscope placed oropharynx passed in the esophagus into the stomach. Scope some placed through the pylorus. The first and second portion of the duodenum appeared normal. Scope was then brought back the antrum this was mildly inflamed. A biopsies performed. Scope was then retroflexed Sanchez the stomach appeared normal. There was no significant hiatal hernia. The GE junction was at 40 cm. The distal esophagus appeared normal. The proximal esophagus appeared normal. Scope withdrawn for patient. Next digital rectal exam was performed. There were internal and external hemorrhoids seen. The flexible colonoscope was then placed patient anus and passed throughout the entire colon. The ileocecal valve was visualized. The cecum, ascending and transverse colon appeared normal. The descending and sigmoid colon appeared normal. Scope was brought back the rectum this appeared normal. Scope was withdrawn the anus and there were internal and external hemorrhoids noted. Scope was withdrawn for patient. Presumed patient's bleeding from hemorrhoids.
[2022-02-18] MEDS ORDERED: ONDANSETRON 4 MG/2 ML VIAL ONE (09:42)
[2022-02-18 09:46] VITALS: BP 117/54; PULSE 66
[2022-02-18] MEDS ORDERED: ONDANSETRON 4 MG/2 ML VIAL IVP ONE (09:46)
== END 2022-02-18 10:22 | disposition home or self-care (01) ==
LOC: ORWHC2ENDO 08:01
PROVIDERS: ATTEND Surgery
DX: K29.50 Unspecified chronic gastritis without bleeding (principal); K62.5 Hemorrhage of anus and rectum; K64.8 Other hemorrhoids; K64.4 Residual hemorrhoidal skin tags; J45.909 Unspecified asthma, uncomplicated; G47.33 Obstructive sleep apnea (adult) (pediatric); F17.200 Nicotine dependence, unspecified, uncomplicated; F41.9 Anxiety disorder, unspecified; F32.A Depression, unspecified; Z91.030 Bee allergy status; Z79.899 Other long term (current) drug therapy
CPT/HCPCS: 81025; 88305; 45378; 43239; J2405; J2704; J2001

== ENCOUNTER 2023-10-12 21:59 | Emergency (ER) | payer OTHER ==
--- NOTE | 2023-10-12 22:37 | ED ---
Abdominal Pain HPI - General Source: patient, RN notes reviewed Mode of arrival: ambulatory Limitations: no limitations <Shima Vaughn - Last Filed: 10/12/23 22:36> - History of Present Illness MD Complaint: abdominal pain -: days(s) Location: epigastric Radiation: epigastric Migration to: epigastric Severity: moderate Severity scale (1-10): 7 Quality: fullness, dull Consistency: intermittent Improves With: nothing Worsens With: nothing Treatments Prior to Arrival: other (0) <Casa Garcia - Last Filed: 10/24/23 22:07> - General Chief Complaint: Abdominal Pain Stated Complaint: Abd pain Time Seen by Provider: 10/12/23 22:10 - History of Present Illness Initial Comments: Quick [id number] female presents emergency department chief complaint of epigastric abdominal pain with radiation to the back for the last month and a half but has been worsening over the past few days. Patient states that this pain feels similar to when she had her gallbladder removed approximately 2 years ago. She is endorsing nausea, vomiting, and diarrhea. (Shima Vaughn) This is a 28 female with history of cholecystectomy coming in for worsening ab dominal pain for a few days now. Positive nausea positive vomiting positive diarrhea. No fevers (Casa Garcia) - Related Data Home Medications Medication Instructions Recorded Confirmed FLUoxetine HCL [PROzac] 10 mg PO HS 02/14/22 02/18/22 Unk Albuterol Inhaler 2 puff INHALATION QID PRN 02/14/22 02/18/22 Previous Rx's Medication Instructions Recorded Ketorolac [Toradol] 10 mg PO Q8HR #15 tab 02/03/22 Ondansetron Odt [Zofran Odt] 4 mg PO Q8HR PRN #15 tab 02/03/22 Allergies Allergy/AdvReac Type Severity Reaction Status Date / Time bee venom protein (honey bee) Allergy Severe Anaphylaxis Verified 10/12/23 22:35 chocolate flavor Allergy Severe Rash/Hives Verified 10/12/23 22:35 kiwi Allergy Rash/Hives Verified 10/12/23 22:35 Review of Systems ROS Other: All systems not noted in ROS Statement are negative. <Shima Vaughn - Last Filed: 10/12/23 22:36> ROS Other: All systems not noted in ROS Statement are negative. <Casa Garcia Lizette - Last Filed: 10/24/23 22:07> ROS Statement: Those systems with pertinent positive or pertinent negative responses have been documented in the HPI. Past Medical History Past Medical History: Asthma, Sleep Apnea/CPAP/BIPAP Additional Past Medical History / Comment(s): DDD, RU as a child. History of Any Multi-Drug Resistant Organisms: None Reported Past Surgical History: Cholecystectomy Additional Past Surgical History / Comment(s): EGD 07/05/21 Past Anesthesia/Blood Transfusion Reactions: No Reported Reaction Additional Past Anesthesia/Blood Transfusion Reaction / Comment(s): FIRST ANESTH ETIC Past Psychological History: Anxiety, Depression Smoking Status: Current every day smoker Past Alcohol Use History: Occasional - Past Family History Mother Family Medical History: No Reported History Additional Family Medical History / Comment(s): IBS, anxiety, depression Father Family Medical History: Coronary Artery Disease (CAD), Hypertension, Myocardial Infarction (MD) Additional Family Medical History / Comment(s): MD x2 with first one in mid 40s. DDD <Shima Vaughn - Last Filed: 10/12/23 22:36> General Exam Limitations: no limitations <Shima Vaughn - Last Filed: 10/12/23 22:36> General appearance: alert, in no apparent distress Head exam: Present: atraumatic, normocephalic, normal inspection Eye exam: Present: normal appearance, PERRL, EOMI. Absent: scleral icterus, conjunctival injection, periorbital swelling ENT exam: Present: normal exam, mucous membranes moist Neck exam: Present: normal inspection. Absent: tenderness, meningismus, lymphadenopathy Respiratory exam: Present: normal lung sounds bilaterally. Absent: respiratory distress, wheezes, rales, rhonchi, stridor Cardiovascular Exam: Present: regular rate, normal rhythm, normal heart sounds. Absent: systolic murmur, diastolic murmur, rubs, gallop, clicks GI/Abdominal exam: Present: soft, normal bowel sounds. Absent: distended, tenderness, guarding, rebound, rigid Extremities exam: Present: normal inspection, full ROM, normal capillary refill. Absent: tenderness, pedal edema, joint swelling, calf tenderness Back exam: Present: normal inspection Neurological exam: Present: alert, oriented X3, CN II-XII intact Psychiatric exam: Present: normal affect, normal mood Skin exam: Present: warm, dry, intact, normal color. Absent: rash <Casa Garcia - Last Filed: 10/24/23 22:07> - General Exam Comments Initial Comments: Visual Physical Exam Vital signs reviewed General: Well-appearing, nontoxic, no acute distress. Head: Normocephalic, atraumatic Eyes: PERRLA, EOMI ENT: Airway patent Chest: Nonlabored breathing Skin: No visual rash, normal skin tone Neuro: Alert and oriented 3 Musculoskeletal: No gross abnormalities (Stieler,Shima) Course <Casa Garcia - Last Filed: 10/24/23 22:07> Vital Signs 10/12/23 10/12/23 10/12/23 22:32 22:35 23:35 Temperature 98 F Pulse Rate 67 67 80 Respiratory 16 20 16 Rate Blood Pressure 122/79 112/74 129/70 O2 Sat by Pulse 100 100 98 Oximetry 10/13/23 10/13/23 10/13/23 01:35 02:00 04:00 Temperature 98.7 F Pulse Rate 76 79 70 Respiratory 18 16 16 Rate Blood Pressure 110/67 118/70 118/76 O2 Sat by Pulse 98 98 98 Oximetry 10/13/23 10/13/23 06:00 07:56 Temperature Pulse Rate 70 70 Respiratory 20 16 Rate Blood Pressure 118/68 122/71 O2 Sat by Pulse 98 98 Oximetry - Reevaluation(s) Reevaluation #1: 10/13/23 01:29 Medical records reviewed (Casa Garcia) Reevaluation #2: 10/13/23 01:29 Symptoms improved (Casa Garcia) Reevaluation #3: Patient informed of results and questions answered (Casa Garcia) Reevaluation #4: Was pt. sent in by a medical professional or institution (, PA, ZIG [employer] SPRING MACHINE OPERATOR, urgent care, hospital, or fdc...) When possible be specific @ -no Did you speak to anyone other than the patient for history (EMS, parent, family, police, friend...)? What history was obtained from this source @ -no Did you review nursing and triage notes (agree or disagree)? Why? @ -agree Are old charts reviewed (outside hosp., previous admission, EMS record, old EKG, old radiological studies, urgent care reports/EKG's, fdc records)? Report findings @ -yes Differential Diagnosis (chest pain, altered mental status, abdominal pain women, abdominal pain men, vaginal bleeding, weakness, fever, dyspnea, syncope, headache, dizziness, GI bleed, back pain, seizure, CVA, palpatations, mental health, musculoskeletal)? @ -prior EKG interpreted by me (3pts min.). @ -no X-rays interpreted by me (1pt min.). @ -no CT interpreted by me (1pt min.). @ -Yes positive for enteritis U/S interpreted by me (1pt. min.). @ -no What testing was considered but not performed or refused? (CT, X-rays, U/S, labs)? Why? @ -none What meds were considered but not given or refused? Why? @ -none Did you discuss the management of the patient with other professionals (professionals i.e. , PA, [employer] SPRING MACHINE OPERATOR, lab, RT, psych nurse, social science teacher, accounting professor, teacher, chief lending officer, outsole caser)? Give summary @ -no Was smoking cessation discussed for >3mins.? @ -no Was critical care preformed (if so, how long)? @ -no Were there social determinants of health that impacted care today? How? (Homelessness, low income, unemployed, alcoholism, drug addiction, transportation, low edu. Level, literacy, decrease access to med. care, nursing home, rehab)? @ -none Was there de-escalation of care discussed even if they declined (Discuss DNR or withdrawal of care, Hospice)? DNR status @ -no What co-morbidities impacted this encounter? (DM, HTN, Smoking, COPD, CAD, Cancer, CVA, ARF, Chemo, Hep., AIDS, mental health diagnosis, sleep apnea, morbid obesity)? @ -none Was patient admitted / discharged? Hospital course, mention meds given and route, prescriptions, significant lab abnormalities, going to OR and other pertinent info. @ -28 female to the ER for evaluation of abdominal pain. CT positive for enteritis symptoms improved here in the ER patient feels improved and can be discharged home Discharge Undiagnosed new problem with uncertain prognosis? @ -no Drug Therapy requiring intensive monitoring for toxicity (Heparin, Nitro, Insulin, Cardizem)? @ -no Were any procedures done? @ -no Diagnosis/symptom? @ -Abdominal pain and enteritis Acute, or Chronic, or Acute on Chronic? @ -Acute Uncomplicated (without systemic symptoms) or Complicated (systemic symptoms)? @ -Complicated Side effects of treatment? @ -no Exacerbation, Progression, or Severe Exacerbation? @ -exacerbation Poses a threat to life or bodily function? How? (Chest pain, USA, MD, pneumonia, PE, COPD, DKA, ARF, appy, cholecystitis, CVA, Diverticulitis, Homicidal, Suicidal, threat to staff... and all critical care pts) @ -no (Casa Garcia) Reevaluation #5: Differential Abdominal Pain Women: Appendicitis, Cholecystitis, diverticulosis, ischemic bowel, pancreatitis, hepatitis, UTI, gastroenteritis, AAA, incarcerated hernia, bowel obstruction, constipation, inflammatory bowel, hepatitis, peptic ulcer disease, splenic infarction, perforated viscus, vulvitis, ovarian torsion, PID, kidney stone, placenta abruption, this is not meant to be an all-inclusive list (Casa Garcia) Medical Decision Making <Shima Vaughn - Last Filed: 10/12/23 22:36> - Lab Data Result diagrams: 10/13/23 02:44 10/13/23 02:44 - Radiology Data Radiology results: report reviewed (CT abdomen pelvis is negative for acute disease), image reviewed <Casa Garcia - Last Filed: 10/24/23 22:07> - Medical Decision Making I completed the quick note portion of this chart signed Shima Vaughn PA-C (Shima Vaughn) 28 female to the ER for evaluation of abdominal pain. CT positive for enteritis symptoms improved here in the ER patient feels improved and can be discharged ho me (Casa Garcia) - Lab Data Lab Results 10/13/23 10/13/23 10/13/23 Range/Units 02:44 02:44 04:52 WBC 7.2 (3.8-10.6) k/uL RBC 4.17 (3.80-5.40) m/uL Hgb 13.0 (11.4-16.0) gm/dL Hct 41.0 (34.0-46.0) % MCV 98.2 (80.0-100.0) fL MCH 31.1 (25.0-35.0) pg MCHC 31.6 (31.0-37.0) g/dL RDW 12.7 (11.5-15.5) % Plt Count 219 (150-450) k/uL MPV 8.4 Neutrophils % 51 % Lymphocytes % 36 % Monocytes % 6 % Eosinophils % 3 % Basophils % 1 % Neutrophils # 3.6 (1.3-7.7) k/uL Lymphocytes # 2.6 (1.0-4.8) k/uL Monocytes # 0.4 (0-1.0) k/uL Eosinophils # 0.2 (0-0.7) k/uL Basophils # 0.0 (0-0.2) k/uL Sodium 136 L (137-145) mmol/L Potassium 3.6 (3.5-5.1) mmol/L Chloride 104 (98-107) mmol/L Carbon Dioxide 25 (22-30) mmol/L Anion Gap 7 mmol/L BUN 22 H (7-17) mg/dL Creatinine 0.65 (0.52-1.04) mg/dL Est GFR (CKD-EPI)AfAm >90 (>60 ml/min/1.73 sqM) Est GFR (CKD-EPI)NonAf >90 (>60 ml/min/1.73 sqM) Glucose 88 (74-99) mg/dL Calcium 8.9 (8.4-10.2) mg/dL Total Bilirubin 0.5 (0.2-1.3) mg/dL AST 20 (14-36) U/L ALT 14 (4-34) U/L Alkaline Phosphatase 42 (38-126) U/L Total Protein 6.3 (6.3-8.2) g/dL Albumin 4.0 (3.5-5.0) g/dL Amylase 61 (30-110) U/L Lipase 87 (23-300) U/L Urine Color Colorless Urine Appearance Clear (Clear) Urine pH 6.0 (5.0-8.0) Ur Specific [place] >1.050 H (1.001-1.035) Urine Protein Negative (Negative) Urine Glucose (UA) Negative (Negative) Urine Ketones Negative (Negative) Urine Blood Negative (Negative) Urine Nitrite Negative (Negative) Urine Bilirubin Negative (Negative) Urine Urobilinogen <2.0 (<2.0) mg/dL Ur Leukocyte Esterase Negative (Negative) Urine HCG, Qual (Not Detectd) 10/13/23 Range/Units 04:52 WBC (3.8-10.6) k/uL RBC (3.80-5.40) m/uL Hgb (11.4-16.0) gm/dL Hct (34.0-46.0) % MCV (80.0-100.0) fL MCH (25.0-35.0) pg MCHC (31.0-37.0) g/dL RDW (11.5-15.5) % Plt Count (150-450) k/uL MPV Neutrophils % % Lymphocytes % % Monocytes % % Eosinophils % % Basophils % % Neutrophils # (1.3-7.7) k/uL Lymphocytes # (1.0-4.8) k/uL Monocytes # (0-1.0) k/uL Eosinophils # (0-0.7) k/uL Basophils # (0-0.2) k/uL Sodium (137-145) mmol/L Potassium (3.5-5.1) mmol/L Chloride (98-107) mmol/L Carbon Dioxide (22-30) mmol/L Anion Gap mmol/L BUN (7-17) mg/dL Creatinine (0.52-1.04) mg/dL Est GFR (CKD-EPI)AfAm (>60 ml/min/1.73 sqM) Est GFR (CKD-EPI)NonAf (>60 ml/min/1.73 sqM) Glucose (74-99) mg/dL Calcium (8.4-10.2) mg/dL Total Bilirubin (0.2-1.3) mg/dL AST (14-36) U/L ALT (4-34) U/L Alkaline Phosphatase (38-126) U/L Total Protein (6.3-8.2) g/dL Albumin (3.5-5.0) g/dL Amylase (30-110) U/L Lipase (23-300) U/L Urine Color Urine Appearance (Clear) Urine pH (5.0-8.0) Ur Specific [place] (1.001-1.035) Urine Protein (Negative) Urine Glucose (UA) (Negative) Urine Ketones (Negative) Urine Blood (Negative) Urine Nitrite (Negative) Urine Bilirubin (Negative) Urine Urobilinogen (<2.0) mg/dL Ur Leukocyte Esterase (Negative) Urine HCG, Qual Not Detected (Not Detectd) Disposition <Shima Vaughn - Last Filed: 10/12/23 22:36> Is patient prescribed a controlled substance at d/c from ED?: No Time of Disposition: 06:00 <Casa Garcia - Last Filed: 10/24/23 22:07> Clinical Impression: Abdominal pain, Enteritis Disposition: HOME SELF-CARE Condition: Good Instructions (If sedation given, give patient instructions): Abdominal Pain (ED), Enteritis (ED) Referrals: Viky Menendez DO [Primary Care Provider] - 1-2 days
[2023-10-13] MEDS: PANTOPRAZOLE 40 MG/10 ML VIAL IVP STA (02:58)
[2023-10-13] MEDS: SODIUM CHLORIDE 0.9% 1,000 ML IV STA (02:58)
[2023-10-13] MEDS: HYDROmorphone 0.5 MG/0.5 ML SYRINGE IVP STA ×2 (02:58→04:31)
[2023-10-13] MEDS: ONDANSETRON 4 MG/2 ML VIAL IVP STA (02:58)
[2023-10-13 04:06] LABS: Basophils % (A) 1 %; Eosinophils # (A) 0.2 k/uL (0-0.7); Eosinophils % (A) 3 %; Lymphocytes # (A) 2.6 k/uL (1.0-4.8); Lymphocytes % (A) 36 %; MCH 31.1 pg (25.0-35.0); MCHC 31.6 g/dL (31.0-37.0); MCV 98.2 fL (80.0-100.0); Mean Platelet Volume 8.4; Monocytes # (A) 0.4 k/uL (0-1.0); Monocytes % (A) 6 %; Neutrophils # (A) 3.6 k/uL (1.3-7.7); Neutrophils % (A) 51 %; Platelet Count 219 k/uL (150-450); RBC 4.17 m/uL (3.80-5.40); RDW 12.7 % (11.5-15.5); WBC 7.2 k/uL (3.8-10.6)
[2023-10-13 04:27] LABS: ALT 14 U/L (4-34); AST 20 U/L (14-36); African American GFR (CKD) >90 (>60 ml/min/1.73 sqM); Alkaline Phosphatase 42 U/L (38-126); Amylase 61 U/L (30-110); Anion Gap 7 mmol/L; Blood Urea Nitrogen 22 mg/dL (7-17); Calcium 8.9 mg/dL (8.4-10.2); Carbon Dioxide 25 mmol/L (22-30); Chloride 104 mmol/L (98-107); Glucose 88 mg/dL (74-99); Lipase 87 U/L (23-300); Non-African American GFR(CKD) >90 (>60 ml/min/1.73 sqM); Potassium 3.6 mmol/L (3.5-5.1); Sodium 136 mmol/L (137-145); Total Bilirubin 0.5 mg/dL (0.2-1.3); Total Protein 6.3 g/dL (6.3-8.2)
[2023-10-13 05:03] LABS: Appearance,Urine Clear (Clear); Bilirubin,Urine Negative (Negative); Blood,Urine Negative (Negative); Color,Urine Colorless; Glucose,Urine (UA) Negative (Negative); Ketones,Urine Negative (Negative); Leukocyte Esterase,Urine Negative (Negative); Nitrite,Urine Negative (Negative); Protein,Urine Negative (Negative); Urobilinogen,Urine <2.0 mg/dL (<2.0)
[2023-10-13 05:11] LABS: Specific Gravity,Urine >1.050 (1.001-1.035)
[2023-10-13] MEDS: ACET/COD 300 MG/30 MG STARTER PACK 6 TAB BTL PO STA (07:26)
[2023-10-13] MEDS: ONDANSETRON 4 MG ODT STARTER PACK 2 TAB BTL PO STA (07:26)
[2023-10-13 07:45] VITALS: TEMP 98.7
[2023-10-13 07:48] VITALS: PULSE 70
[2023-10-13 07:57] VITALS: BP 122/71; RESP 16
--- NOTE | 2023-10-13 17:31 | CT ---
EXAM: CT Abdomen and Pelvis With Intravenous Contrast CLINICAL HISTORY: mid epigastric pain, pt reports nausea, vomiting, diarrhea. Pt reports intermittent pain, N/V/D [id number] and came into ED tonight because pt has not been able to control pain TECHNIQUE: Axial computed tomography images of the abdomen and pelvis with intravenous contrast. CTDI is 10.3 mGy and DLP is 472.9 mGy-cm. This CT exam was performed using one or more of the following dose reduction techniques: automated exposure control, adjustment of the mA and/or kV according to patient size, and/or use of iterative reconstruction technique. COMPARISON: 07/18/2021.. FINDINGS: Lung bases: Unremarkable. No mass. No consolidation. ABDOMEN: Liver: Mildly hypodense/fatty.. No mass. Gallbladder and bile ducts: Post cholecystectomy. No ductal dilation. Pancreas: Unremarkable. No mass. No ductal dilation. Spleen: Unremarkable. No splenomegaly. Adrenals: Unremarkable. No mass. Kidneys and ureters: No obstructive uropathy. No obstructing renal or ureteral calculi. No hydronephrosis or hydroureter. Stomach and bowel: No obstruction or ileus. Scattered air-fluid levels in nondilated small bowel. No evidence for diverticulitis. PELVIS: Appendix: Appendix not identified. No secondary evidence for appendicitis.. Bladder: Unremarkable. No mass. Reproductive: Uterus and ovaries are not well characterized due to bowel is small amount of fluid.. ABDOMEN and PELVIS: Intraperitoneal space: No free air. Mild free fluid greatest in the pelvis. Free fluid. Bones/joints: No acute fracture. Soft tissues: Unremarkable. Vasculature: Unremarkable. No abdominal aortic aneurysm. Lymph nodes: Unremarkable. No enlarged lymph nodes. IMPRESSION: Scattered air-fluid levels in nondilated small bowel, possibly mild enteritis. Mild lower pelvic free fluid. Otherwise no change.
== END 2023-10-13 07:36 | disposition home or self-care (01) ==
LOC: EC 21:59
DX: K52.9 Noninfective gastroenteritis and colitis, unspecified (principal); F17.200 Nicotine dependence, unspecified, uncomplicated; Z91.030 Bee allergy status; Z91.018 Allergy to other foods; Z90.49 Acquired absence of other specified parts of digestive tract
CPT/HCPCS: 99285; 96374; 96375 ×2; 96376; 96361; 36415; 80053; 82150; 83690; 85025; 81003; 81025; 74177; J2405; S0119; C9113; J1170; Q9967